=== PATIENT | female | born 1975 | race American Indian/Alaskan Native ===

== ENCOUNTER 2016-09-24 21:59 | Observation (INO) | payer MEDICAID ==
[2016-09-24] MEDS ORDERED: TYLENOL PO PRN (22:31)
[2016-09-24] MEDS ORDERED: ZOFRAN IV PRN (22:31)
[2016-09-24] MEDS ORDERED: AMBIEN PO PRN (22:31)
[2016-09-24] MEDS ORDERED: MYLICON PO PRN (22:31)
[2016-09-24] MEDS ORDERED: COLACE PO PRN (22:31)
[2016-09-24] MEDS ORDERED: DEEP SEA NS PRN (22:31)
[2016-09-24] MEDS ORDERED: BENADRYL PO PRN (22:31)
[2016-09-24] MEDS ORDERED: APRESOLINE PO SCH (22:41)
[2016-09-24] MEDS: APRESOLINE IV PRN (22:57)
[2016-09-24] MEDS ORDERED: LACTATED RINGERS 1,000 ML IV SCH (23:00)
[2016-09-24] MEDS: CELESTONE SOLUSPAN IM SCH (23:14)
[2016-09-24] MEDS ORDERED: NORMODYNE IV ONE ×4 (23:24→23:59)
[2016-09-24 23:50] LABS: Alanine Aminotransferase < 5 units/L (7-56)
[2016-09-24] MEDS: LACTATED RINGERS 1,000 ML IV SCH (23:53)
[2016-09-25 00:01] LABS: Hematocrit 23.8 % (30.3-42.9); Hemoglobin 7.3 gm/dl (10.1-14.3); Mean Corpuscular HGB Conc 31 % (30-34); Mean Corpuscular Hemoglobin 22 pg (28-32); Mean Corpuscular Volume 71 fl (79-97); Platelet Count 270 K/mm3 (140-440); Red Blood Count 3.35 M/mm3 (3.65-5.03); Red Cell Distribution Width 19.3 % (13.2-15.2); White Blood Count 7.6 K/mm3 (4.5-11.0)
[2016-09-25] MEDS ORDERED: APRESOLINE IV ONE (00:31)
[2016-09-25] MEDS: NORMODYNE PO SCH ×5 (01:15→23:08)
[2016-09-25 01:36] LABS: Bacteria,Urine 1+ /HPF (Negative); Bilirubin,Urine NEG (Negative); Blood,Urine NEG (Negative); Ketones,Urine NEG (Negative); Leukocyte Esterase,Urine LG (Negative); Mucus,Urine FEW /HPF; Nitrite,Urine NEG (Negative)
[2016-09-25 07:49] LABS: Lactate Dehydrogenase 173 units/L (91-180)
[2016-09-25] MEDS: LACTATED RINGERS 1,000 ML IV SCH ×2 (08:21→16:05)
--- NOTE | 2016-09-25 09:56 | Ultrasound Report ---
OB sonogram: There is single intrauterine gestation noted with cephalic presentation. JACY 8 cm. Placenta posterior and grade 1. heart rate 150 per minute. No evidence of abruptio. Impression: No evidence of abruptio. BIOPHYSICAL PROFILE: 2 - breathing movements 2 - movements 2 - posture and tone 2 - Qualitative amniotic fluid volume 8 - TOTAL SCORE OF POSSIBLE 8 Heart Rate (bpm) 150
[2016-09-25] MEDS: PRENATAL VITAMIN PO SCH (10:32)
--- NOTE | 2016-09-25 12:23 | History and Physical Report ---
History of Present Illness Date of examination: 09/25/16 Date of admission: 09/24/16 22:32 Chief complaint: Sent by [facility] for blood pressure control and steroid administration History of present illness: Pt is a 40 year old -[place] female CIARRA 11/21/16 at 31w6d with a h/o chronic hypertension on labetalol 300 mg QID and hyralazine 50 mg PO BID, obesity, advanced maternal age and a h/o preeclampsia at 35 wks presents from her home with instructions that she should be admitted for blood pressure monitoring and steroid administration. She was initially seen by her primary Ob/ Bill Of Materials Clerk on 09/22/16 with elevated BP of 154/86 and instructed to proceed to triage which the patient declined to do because she needed to go to work. She was seen at [facility] on 09/23/16, where she is comanaged secondary to her comorbidities, where she had blood pressures 186/102 and 183/101. She was instructed to proceed to triage on this date as well. However, the patient did not present until the evening of 09/24/16 when she was admitted. Shortly after admission, the patient had blood pressures 216/109 and 207/93. She received Labetalol IV 20 mg, then 40 mg, then 80 mg, and hydralazine 10 mg IV before her blood pressure dropped below 160/110. She does report that she is not taking her hydralazine and third medication that the patient cannot recall the name of because it "makes her sick." She does report good movement and denies vaginal bleeding, leakage of fluid or contractions. 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, syphilis (treated ) Family/Genetic History: hypertension, cancer Social history: no significant social history - Obstetrical History Expected Date of Delivery: 11/21/16 Actual Gestation: 31 Week(s) 6 Day(s) : 5 Para: 4 Hx # Term Pregnancies: 3 Number of Pregnancies: 1 Spontaneous Abortions: 0 Induced : 0 Number of Living Children: 4 Medications and Allergies Allergies Allergy/AdvReac Type Severity Reaction Status Date / Time No Known Allergies Allergy Unverified 09/24/16 22:31 Home Medications Medication Instructions Recorded Confirmed Last Taken Type Aspirin [Aspirin BABY CHEW TAB] 81 mg PO QDAY 09/24/16 09/24/16 09/24/16 History Ferrous Sulfate [Feosol] 325 mg PO QDAY 09/24/16 09/24/16 09/24/16 History Labetalol [Normodyne] 300 mg PO QID 09/24/16 09/24/16 09/24/16 19:30 History hydrALAZINE [Apresoline] 50 mg PO BID 09/24/16 09/24/16 09/23/16 History Active Meds: Active Medications Acetaminophen (Tylenol) 650 mg PO Q4H PRN PRN Reason: Pain MILD(1-3)/Fever >100.5/RAM Betamethasone Acet/Betameth SodPhos (Celestone Soluspan) 12 mg IM Q24H [facility] Stop: 09/25/16 22:31 Last Admin: 09/24/16 23:14 Dose: 12 mg Diphenhydramine HCl (Benadryl) 25 mg PO Q6H PRN PRN Reason: Itching Docusate Sodium (Colace) 100 mg PO Q12H PRN PRN Reason: Constipation Ferrous Sulfate (Feosol) 325 mg PO BID [facility] Hydralazine HCl (Apresoline) 5 mg IV Q30MIN PRN PRN Reason: Hypertension Last Admin: 09/24/16 22:57 Dose: 5 mg Lactated Ringer's (Lactated Ringers) 1,000 mls @ 125 mls/hr IV DIRECT [facility] Last Admin: 09/25/16 08:21 Dose: 125 mls/hr Labetalol HCl (Normodyne) 400 mg PO QID [facility] Last Admin: 09/25/16 08:24 Dose: 400 mg Multivitamins/Iron/Calcium ( Vitamin) 1 each PO QDAY [facility] Last Admin: 09/25/16 10:32 Dose: 1 each Ondansetron HCl (Zofran) 4 mg IV Q6H PRN PRN Reason: Nausea And Vomiting Simethicone (Mylicon) 80 mg PO Q6H PRN PRN Reason: Gas pain Sodium Chloride (Deep Sea) 2 spray NS Q4H PRN PRN Reason: Congestion Zolpidem Tartrate (Ambien) 10 mg PO QHS PRN PRN Reason: Sleep Last Admin: 09/25/16 01:15 Dose: 10 mg Review of Systems All systems: negative - Vital Signs Vital signs: Vital Signs Pulse Pulse Ox 107 H 99 09/24/16 22:10 09/24/16 22:10 Temp Pulse Resp BP Pulse Ox 97.6 F 100 H 20 177/91 97 09/25/16 10:00 09/25/16 12:19 09/25/16 10:00 09/25/16 11:57 09/25/16 12:19 - Physical Exam Breasts: Positive: deferred Cardiovascular: Regular rate Lungs: Positive: Clear to auscultation Abdomen: Positive: soft (obese, gravid ) Uterus: Positive: enlarged (gravid ) Extremities: Positive: normal - Obstetrical FHR: auscultation normal Uterine Contraction Monitor Mode: External Uterine Contraction Pattern: Absent Uterine Tone Measurement Phase: Resting Results Result Diagrams: 09/24/16 22:55 09/24/16 22:55 Abnormal lab results 09/24/16 09/24/16 09/25/16 Range/Units 22:55 22:55 00:11 RBC 3.35 L (3.65-5.03) M/mm3 Hgb 7.3 L (10.1-14.3) gm/dl Hct 23.8 L (30.3-42.9) % MCV 71 L (79-97) fl MCH 22 L (28-32) pg RDW 19.3 H (13.2-15.2) % Creatinine 0.6 L (0.7-1.2) mg/dL ALT < 5 L (7-56) units/L Urine WBC (Auto) 28.0 H (0.0-6.0) /HPF All other labs normal. Assessment and Plan A: IUP at 31w6d Chronic hypertension on labetalol and hydralazine (pt non-compliant with prescribed regimen H/o superimposed preeclampsia at 35 wks Anemia pericardial effusion Advanced Maternal Age Obesity Glucose intolerance H/o syphillis Genital Herpes P: Admit to antepartum service Administer two doses of betamethasone (first dose given 09/24/16 23:14 PM) Daily weights Collect 24 hr urine protein APA consult BPP ordered Closely monitor maternal and status
[2016-09-25] MEDS: FEOSOL PO SCH ×2 (12:46→23:08)
--- NOTE | 2016-09-25 13:14 | Consultation ---
History of Present Illness Consult date: 09/25/16 Requesting physician: ALEXEY WONG Reason for consult: gestational hypertension History of present illness: 40YO CIARRA 11/18/16 EGA @ 31w3d admitted due to elevated BPs on OB evaluation. Seen at [facility] and recommended admit due to PIH concerns. HOSPITAL COURSE: She has had labile elevated BPs. She denies any headaches or visual changes. Her resulted labs are unremarkable. Her 24-hr urine is in progress Reassuring bejhavior is demonstrated with a score of 8/8. Her JACY was 8 cm AP Hx - She reports having had a negative NIPT and MSAFP. She reports having had a negative GTT She reports having had baseline PIH labs performed, including a 24-hr urine She was scheduled to have a maternal echo due to her CHTN concerns. She had a EKG She has been on multiple regimens for her BP control this . She is was on Labetalol 300 mg tid, and reports being increased to 400 mg tid and is also taking PO Hydralazine, and LDA Past History Past Medical History: hypertension Past Surgical History: no surgical history Social history: no significant social history - Obstetrical History Expected Date of Delivery: 11/18/16 Actual Gestation: 32 Week(s) 2 Day(s) : 5 Para: 4 Hx # Term Pregnancies: 3 Number of Pregnancies: 1 Spontaneous Abortions: 0 Number of Living Children: 4 Medications and Allergies Allergies Allergy/AdvReac Type Severity Reaction Status Date / Time No Known Allergies Allergy Unverified 09/24/16 22:31 Home Medications Medication Instructions Recorded Confirmed Last Taken Type Aspirin [Aspirin BABY CHEW TAB] 81 mg PO QDAY 09/24/16 09/24/16 09/24/16 History Ferrous Sulfate [Feosol] 325 mg PO QDAY 09/24/16 09/24/16 09/24/16 History Labetalol [Normodyne] 300 mg PO QID 09/24/16 09/24/16 09/24/16 19:30 History hydrALAZINE [Apresoline] 50 mg PO BID 09/24/16 09/24/16 09/23/16 History Active Meds: Active Medications Acetaminophen (Tylenol) 650 mg PO Q4H PRN PRN Reason: Pain MILD(1-3)/Fever >100.5/RAM Betamethasone Acet/Betameth SodPhos (Celestone Soluspan) 12 mg IM Q24H [facility] Stop: 09/25/16 22:31 Last Admin: 09/24/16 23:14 Dose: 12 mg Diphenhydramine HCl (Benadryl) 25 mg PO Q6H PRN PRN Reason: Itching Docusate Sodium (Colace) 100 mg PO Q12H PRN PRN Reason: Constipation Ferrous Sulfate (Feosol) 325 mg PO BID [facility] Last Admin: 09/25/16 12:46 Dose: 325 mg Hydralazine HCl (Apresoline) 5 mg IV Q30MIN PRN PRN Reason: Hypertension Last Admin: 09/24/16 22:57 Dose: 5 mg Lactated Ringer's (Lactated Ringers) 1,000 mls @ 125 mls/hr IV DIRECT [facility] Last Admin: 09/25/16 08:21 Dose: 125 mls/hr Labetalol HCl (Normodyne) 400 mg PO QID [facility] Last Admin: 09/25/16 12:45 Dose: 400 mg Multivitamins/Iron/Calcium ( Vitamin) 1 each PO QDAY [facility] Last Admin: 09/25/16 10:32 Dose: 1 each Ondansetron HCl (Zofran) 4 mg IV Q6H PRN PRN Reason: Nausea And Vomiting Simethicone (Mylicon) 80 mg PO Q6H PRN PRN Reason: Gas pain Sodium Chloride (Deep Sea) 2 spray NS Q4H PRN PRN Reason: Congestion Zolpidem Tartrate (Ambien) 10 mg PO QHS PRN PRN Reason: Sleep Last Admin: 09/25/16 01:15 Dose: 10 mg Review of Systems All systems: negative Eyes: normal appearance Ears, nose, mouth and throat: deferred Cardiovascular: high blood pressure Breasts: deferred - Vital Signs Vital signs: Vital Signs Pulse Pulse Ox 107 H 99 09/24/16 22:10 09/24/16 22:10 Temp Pulse Resp BP Pulse Ox 97.6 F 104 H 20 141/76 99 09/25/16 10:00 09/25/16 13:04 09/25/16 10:00 09/25/16 12:57 09/25/16 13:04 - Physical Exam Breasts: Positive: deferred Cardiovascular: Regular rate Lungs: Positive: Normal air movement Abdomen: Positive: normal appearance Extremities: Positive: normal - Obstetrical FHR: category 1 Results Result Diagrams: 09/24/16 22:55 09/24/16 22:55 Abnormal lab results 09/24/16 09/24/16 09/25/16 Range/Units 22:55 22:55 00:11 RBC 3.35 L (3.65-5.03) M/mm3 Hgb 7.3 L (10.1-14.3) gm/dl Hct 23.8 L (30.3-42.9) % MCV 71 L (79-97) fl MCH 22 L (28-32) pg RDW 19.3 H (13.2-15.2) % Creatinine 0.6 L (0.7-1.2) mg/dL ALT < 5 L (7-56) units/L Urine WBC (Auto) 28.0 H (0.0-6.0) /HPF All other labs normal. Ultrasound: report reviewed Assessment and Plan IMPRESSIONS: 1. IUP @ 31w3d 2. CHTN history on Labetalol and Hydralazine 3. Labile BP elevations 4. PIH labs stable with 24-hr pending 5. Not a candidate for outpatient surveillance due to her significant BP values when labile 6. Unspecified cardiac concern with maternal echo previously scheduled 7. She is at risk for progressing superimposed preeclampsia based on her having a prior history with ler last , as well as her AMA and having CHTN. 8. Reassuring behavior RECOMMENDATIONS: 1. Betamethasone course 2. MgSO4 for neuroprophylaxis 3. Follow-up 24-hr urine results 4. BPP twice weekly to monitor JACY and well-being 5. APA will follow-up periodically, or as requested 6. Serial PIH labs based on subsequent course
[2016-09-25] MEDS ORDERED: CALCIUM GLUCONATE IV ONE (14:41)
[2016-09-25] MEDS ORDERED: MAGNESIUM SULFATE 4GM/100ML 4 GM/100 ML BAG IV ONE (14:41)
[2016-09-25] MEDS: MAGNESIUM SULFATE 40GM/1000ML 40 GM/1,000 ML BAG IV SCH (14:58)
[2016-09-25] MEDS: CELESTONE SOLUSPAN IM SCH (23:43)
[2016-09-26] MEDS: LACTATED RINGERS 1,000 ML IV SCH (05:33)
[2016-09-26] MEDS: APRESOLINE IV PRN (08:51)
[2016-09-26] MEDS: PRENATAL VITAMIN PO SCH (10:15)
[2016-09-26] MEDS: NORMODYNE PO SCH ×3 (10:16→18:06)
--- NOTE | 2016-09-26 11:16 | Progress Note ---
Assessment and Plan A: IUP at 32w0d s/p 2 doses of betamethasone Chronic hypertension on labetalol and hydralazine (pt non-compliant with prescribed regimen): 24 hr urine resulted with 288 mg of protein H/o superimposed preeclampsia at 35 wks Anemia pericardial effusion Advanced Maternal Age Obesity Glucose intolerance H/o syphillis Genital Herpes P: Complete 24 hrs of magnesium sulfate neurprophylaxis (until 3 pm today) Daily weights Closely monitor maternal and status Subjective - Subjective Date of service: 09/26/16 Principal diagnosis: IUP at 32w0d; AMA, Chronic Hypertension Interval history: Pt anxious to go home. Pharmacy called the medicine that makes the patient "sick " is methyl-dopa not hydralazine. No obstetric complaints. Patient reports: movement normal, no new complaints, no loss of fluid, no vaginal bleeding, no contractions Objective - Vital Signs Vital Signs: Vital Signs - 12hr 09/25/16 09/25/16 09/25/16 23:15 23:17 23:19 Temperature 97.7 F Pulse Rate 91 H 90 Pulse Rate [ 91 H From Monitor] Respiratory 20 Rate Blood Pressure 148/83 Blood Pressure 148/83 [Left Arm] Blood Pressure 148/83 [Right Arm] O2 Sat by Pulse 88 Oximetry 09/25/16 09/25/16 09/25/16 23:20 23:25 23:30 Temperature Pulse Rate 87 92 H 90 Pulse Rate [ From Monitor] Respiratory Rate Blood Pressure Blood Pressure [Left Arm] Blood Pressure [Right Arm] O2 Sat by Pulse 97 98 96 Oximetry 09/25/16 09/25/16 09/25/16 23:35 23:38 23:40 Temperature Pulse Rate 91 H 100 H 103 H Pulse Rate [ From Monitor] Respiratory Rate Blood Pressure Blood Pressure [Left Arm] Blood Pressure [Right Arm] O2 Sat by Pulse 99 90 99 Oximetry 09/25/16 09/25/16 09/25/16 23:43 23:45 23:50 Temperature Pulse Rate 94 H 93 H 95 H Pulse Rate [ From Monitor] Respiratory Rate Blood Pressure Blood Pressure [Left Arm] Blood Pressure [Right Arm] O2 Sat by Pulse 93 99 99 Oximetry 09/25/16 09/25/16 09/26/16 23:55 23:56 00:00 Temperature Pulse Rate 95 H 93 H Pulse Rate [ From Monitor] Respiratory Rate Blood Pressure Blood Pressure [Left Arm] Blood Pressure [Right Arm] O2 Sat by Pulse 99 87 99 Oximetry 09/26/16 09/26/16 09/26/16 00:05 00:10 00:15 Temperature Pulse Rate 88 90 85 Pulse Rate [ From Monitor] Respiratory Rate Blood Pressure Blood Pressure [Left Arm] Blood Pressure [Right Arm] O2 Sat by Pulse 96 97 96 Oximetry 09/26/16 09/26/16 09/26/16 00:18 00:20 00:25 Temperature Pulse Rate 85 85 91 H Pulse Rate [ From Monitor] Respiratory Rate Blood Pressure 149/81 Blood Pressure [Left Arm] Blood Pressure [Right Arm] O2 Sat by Pulse 95 98 Oximetry 09/26/16 09/26/16 09/26/16 00:30 00:35 00:38 Temperature Pulse Rate 85 86 97 H Pulse Rate [ From Monitor] Respiratory Rate Blood Pressure Blood Pressure [Left Arm] Blood Pressure [Right Arm] O2 Sat by Pulse 96 97 88 Oximetry 09/26/16 09/26/16 09/26/16 00:40 00:45 00:50 Temperature Pulse Rate 88 86 87 Pulse Rate [ From Monitor] Respiratory Rate Blood Pressure Blood Pressure [Left Arm] Blood Pressure [Right Arm] O2 Sat by Pulse 94 97 98 Oximetry 09/26/16 09/26/16 09/26/16 00:55 01:00 01:05 Temperature Pulse Rate 84 87 88 Pulse Rate [ From Monitor] Respiratory Rate Blood Pressure Blood Pressure [Left Arm] Blood Pressure [Right Arm] O2 Sat by Pulse 98 96 95 Oximetry 09/26/16 09/26/16 09/26/16 01:09 01:10 01:15 Temperature Pulse Rate 91 H 86 91 H Pulse Rate [ From Monitor] Respiratory Rate Blood Pressure Blood Pressure [Left Arm] Blood Pressure [Right Arm] O2 Sat by Pulse 94 97 96 Oximetry 09/26/16 09/26/16 09/26/16 01:17 01:20 01:25 Temperature Pulse Rate 93 H 89 91 H Pulse Rate [ From Monitor] Respiratory Rate Blood Pressure 145/81 Blood Pressure [Left Arm] Blood Pressure [Right Arm] O2 Sat by Pulse 97 95 Oximetry 09/26/16 09/26/16 09/26/16 01:29 01:30 01:35 Temperature Pulse Rate 91 H 89 90 Pulse Rate [ From Monitor] Respiratory Rate Blood Pressure Blood Pressure [Left Arm] Blood Pressure [Right Arm] O2 Sat by Pulse 94 94 94 Oximetry 09/26/16 09/26/16 09/26/16 01:40 01:45 01:50 Temperature Pulse Rate 90 90 93 H Pulse Rate [ From Monitor] Respiratory Rate Blood Pressure Blood Pressure [Left Arm] Blood Pressure [Right Arm] O2 Sat by Pulse 94 94 93 Oximetry 09/26/16 09/26/16 09/26/16 01:55 01:58 02:00 Temperature Pulse Rate 91 H 94 H 91 H Pulse Rate [ From Monitor] Respiratory Rate Blood Pressure Blood Pressure [Left Arm] Blood Pressure [Right Arm] O2 Sat by Pulse 98 94 95 Oximetry 09/26/16 09/26/16 09/26/16 02:04 02:05 02:09 Temperature Pulse Rate 93 H 92 H 92 H Pulse Rate [ From Monitor] Respiratory Rate Blood Pressure Blood Pressure [Left Arm] Blood Pressure [Right Arm] O2 Sat by Pulse 94 96 94 Oximetry 09/26/16 09/26/16 09/26/16 02:10 02:15 02:17 Temperature Pulse Rate 90 91 H 93 H Pulse Rate [ From Monitor] Respiratory Rate Blood Pressure 174/83 Blood Pressure [Left Arm] Blood Pressure [Right Arm] O2 Sat by Pulse 94 92 Oximetry 09/26/16 09/26/16 09/26/16 02:20 02:25 02:30 Temperature Pulse Rate 93 H 92 H 90 Pulse Rate [ From Monitor] Respiratory Rate Blood Pressure 135/69 Blood Pressure [Left Arm] Blood Pressure [Right Arm] O2 Sat by Pulse 97 98 94 Oximetry 09/26/16 09/26/16 09/26/16 02:35 02:40 02:41 Temperature Pulse Rate 92 H 92 H 91 H Pulse Rate [ From Monitor] Respiratory Rate Blood Pressure Blood Pressure [Left Arm] Blood Pressure [Right Arm] O2 Sat by Pulse 94 96 94 Oximetry 09/26/16 09/26/16 09/26/16 02:45 02:50 02:55 Temperature Pulse Rate 87 95 H 91 H Pulse Rate [ From Monitor] Respiratory Rate Blood Pressure Blood Pressure [Left Arm] Blood Pressure [Right Arm] O2 Sat by Pulse 97 93 93 Oximetry 09/26/16 09/26/16 09/26/16 02:56 03:00 03:05 Temperature Pulse Rate 93 H 98 H 96 H Pulse Rate [ From Monitor] Respiratory Rate Blood Pressure Blood Pressure [Left Arm] Blood Pressure [Right Arm] O2 Sat by Pulse 92 93 97 Oximetry 09/26/16 09/26/16 09/26/16 03:10 03:15 03:20 Temperature Pulse Rate 91 H 92 H 95 H Pulse Rate [ From Monitor] Respiratory Rate Blood Pressure Blood Pressure [Left Arm] Blood Pressure [Right Arm] O2 Sat by Pulse 94 94 93 Oximetry 09/26/16 09/26/16 09/26/16 03:25 03:30 03:31 Temperature Pulse Rate 95 H 92 H 94 H Pulse Rate [ From Monitor] Respiratory Rate Blood Pressure Blood Pressure [Left Arm] Blood Pressure [Right Arm] O2 Sat by Pulse 93 94 94 Oximetry 09/26/16 09/26/16 09/26/16 03:34 03:35 03:37 Temperature 97.9 F Pulse Rate 93 H 94 H Pulse Rate [ 99 H From Monitor] Respiratory 18 Rate Blood Pressure 131/70 Blood Pressure 131/70 [Left Arm] Blood Pressure 131/70 [Right Arm] O2 Sat by Pulse 98 97 Oximetry 09/26/16 09/26/16 09/26/16 03:40 03:44 03:45 Temperature Pulse Rate 90 102 H 104 H Pulse Rate [ From Monitor] Respiratory Rate Blood Pressure Blood Pressure [Left Arm] Blood Pressure [Right Arm] O2 Sat by Pulse 98 79 L 78 L Oximetry 09/26/16 09/26/16 09/26/16 03:50 03:55 03:56 Temperature Pulse Rate 95 H 96 H Pulse Rate [ From Monitor] Respiratory Rate Blood Pressure Blood Pressure [Left Arm] Blood Pressure [Right Arm] O2 Sat by Pulse 87 94 94 Oximetry 09/26/16 09/26/16 09/26/16 04:00 04:02 04:05 Temperature Pulse Rate 100 H 95 H 100 H Pulse Rate [ From Monitor] Respiratory Rate Blood Pressure Blood Pressure [Left Arm] Blood Pressure [Right Arm] O2 Sat by Pulse 93 93 94 Oximetry 09/26/16 09/26/16 09/26/16 04:08 04:10 04:15 Temperature Pulse Rate 99 H 99 H 95 H Pulse Rate [ From Monitor] Respiratory Rate Blood Pressure Blood Pressure [Left Arm] Blood Pressure [Right Arm] O2 Sat by Pulse 94 94 96 Oximetry 09/26/16 09/26/16 09/26/16 04:17 04:18 04:20 Temperature Pulse Rate 95 H 93 H 93 H Pulse Rate [ From Monitor] Respiratory Rate Blood Pressure 158/87 Blood Pressure [Left Arm] Blood Pressure [Right Arm] O2 Sat by Pulse 94 97 Oximetry 09/26/16 09/26/16 09/26/16 04:25 04:30 04:35 Temperature Pulse Rate 95 H 96 H 92 H Pulse Rate [ From Monitor] Respiratory Rate Blood Pressure Blood Pressure [Left Arm] Blood Pressure [Right Arm] O2 Sat by Pulse 96 95 97 Oximetry 09/26/16 09/26/16 09/26/16 04:40 04:45 04:46 Temperature Pulse Rate 92 H 90 95 H Pulse Rate [ From Monitor] Respiratory Rate Blood Pressure Blood Pressure [Left Arm] Blood Pressure [Right Arm] O2 Sat by Pulse 97 98 94 Oximetry 09/26/16 09/26/16 09/26/16 04:50 04:51 04:55 Temperature Pulse Rate 95 H 95 H 93 H Pulse Rate [ From Monitor] Respiratory Rate Blood Pressure Blood Pressure [Left Arm] Blood Pressure [Right Arm] O2 Sat by Pulse 93 94 94 Oximetry 09/26/16 09/26/16 09/26/16 04:57 05:00 05:03 Temperature Pulse Rate 93 H 94 H 93 H Pulse Rate [ From Monitor] Respiratory Rate Blood Pressure Blood Pressure [Left Arm] Blood Pressure [Right Arm] O2 Sat by Pulse 94 95 94 Oximetry 09/26/16 09/26/16 09/26/16 05:05 05:09 05:10 Temperature Pulse Rate 93 H 92 H 92 H Pulse Rate [ From Monitor] Respiratory Rate Blood Pressure Blood Pressure [Left Arm] Blood Pressure [Right Arm] O2 Sat by Pulse 96 94 95 Oximetry 09/26/16 09/26/16 09/26/16 05:14 05:15 05:17 Temperature Pulse Rate 90 90 91 H Pulse Rate [ From Monitor] Respiratory Rate Blood Pressure 181/94 Blood Pressure [Left Arm] Blood Pressure [Right Arm] O2 Sat by Pulse 94 93 Oximetry 09/26/16 09/26/16 09/26/16 05:19 05:20 05:25 Temperature Pulse Rate 92 H 90 93 H Pulse Rate [ From Monitor] Respiratory Rate Blood Pressure Blood Pressure [Left Arm] Blood Pressure [Right Arm] O2 Sat by Pulse 94 95 93 Oximetry 09/26/16 09/26/16 09/26/16 05:30 05:35 05:39 Temperature Pulse Rate 95 H 91 H 89 Pulse Rate [ From Monitor] Respiratory Rate Blood Pressure 167/86 Blood Pressure [Left Arm] Blood Pressure [Right Arm] O2 Sat by Pulse 93 94 Oximetry 09/26/16 09/26/16 09/26/16 05:40 05:45 05:47 Temperature Pulse Rate 91 H 92 H 94 H Pulse Rate [ From Monitor] Respiratory Rate Blood Pressure Blood Pressure [Left Arm] Blood Pressure [Right Arm] O2 Sat by Pulse 94 93 91 Oximetry 09/26/16 09/26/16 09/26/16 05:50 05:55 05:57 Temperature Pulse Rate 99 H 93 H 96 H Pulse Rate [ From Monitor] Respiratory Rate Blood Pressure Blood Pressure [Left Arm] Blood Pressure [Right Arm] O2 Sat by Pulse 98 92 92 Oximetry 09/26/16 09/26/16 09/26/16 06:00 06:04 06:05 Temperature Pulse Rate 93 H 93 H 91 H Pulse Rate [ From Monitor] Respiratory Rate Blood Pressure Blood Pressure [Left Arm] Blood Pressure [Right Arm] O2 Sat by Pulse 93 94 94 Oximetry 09/26/16 09/26/16 09/26/16 06:10 06:11 06:15 Temperature Pulse Rate 94 H 95 H 92 H Pulse Rate [ From Monitor] Respiratory Rate Blood Pressure Blood Pressure [Left Arm] Blood Pressure [Right Arm] O2 Sat by Pulse 96 94 93 Oximetry 09/26/16 09/26/16 09/26/16 06:16 06:17 06:21 Temperature Pulse Rate 92 H 90 97 H Pulse Rate [ From Monitor] Respiratory Rate Blood Pressure 163/82 Blood Pressure [Left Arm] Blood Pressure [Right Arm] O2 Sat by Pulse 94 97 Oximetry 09/26/16 09/26/16 09/26/16 06:22 06:26 06:28 Temperature Pulse Rate 95 H 96 H 95 H Pulse Rate [ From Monitor] Respiratory Rate Blood Pressure Blood Pressure [Left Arm] Blood Pressure [Right Arm] O2 Sat by Pulse 94 95 94 Oximetry 09/26/16 09/26/16 09/26/16 06:31 06:36 06:38 Temperature Pulse Rate 92 H 92 H 94 H Pulse Rate [ From Monitor] Respiratory Rate Blood Pressure Blood Pressure [Left Arm] Blood Pressure [Right Arm] O2 Sat by Pulse 93 89 92 Oximetry 09/26/16 09/26/16 09/26/16 06:41 06:45 06:46 Temperature Pulse Rate 96 H 96 H 96 H Pulse Rate [ From Monitor] Respiratory Rate Blood Pressure 173/96 Blood Pressure [Left Arm] Blood Pressure [Right Arm] O2 Sat by Pulse 97 96 Oximetry 09/26/16 09/26/16 09/26/16 06:47 06:51 06:53 Temperature Pulse Rate 103 H 93 H 92 H Pulse Rate [ From Monitor] Respiratory Rate Blood Pressure Blood Pressure [Left Arm] Blood Pressure [Right Arm] O2 Sat by Pulse 90 95 94 Oximetry 09/26/16 09/26/16 09/26/16 06:56 06:59 07:01 Temperature Pulse Rate 92 H 89 88 Pulse Rate [ From Monitor] Respiratory Rate Blood Pressure Blood Pressure [Left Arm] Blood Pressure [Right Arm] O2 Sat by Pulse 92 93 94 Oximetry 09/26/16 09/26/16 09/26/16 07:06 07:08 07:11 Temperature Pulse Rate 92 H 90 89 Pulse Rate [ From Monitor] Respiratory Rate Blood Pressure 158/84 Blood Pressure [Left Arm] Blood Pressure [Right Arm] O2 Sat by Pulse 95 97 Oximetry 09/26/16 09/26/16 09/26/16 07:13 07:15 07:16 Temperature 97.7 F Pulse Rate 92 H 94 H Pulse Rate [ 93 H From Monitor] Respiratory 24 Rate Blood Pressure Blood Pressure 160/86 [Left Arm] Blood Pressure 160/86 [Right Arm] O2 Sat by Pulse 94 93 94 Oximetry 09/26/16 09/26/16 09/26/16 07:17 07:21 07:26 Temperature Pulse Rate 90 92 H 92 H Pulse Rate [ From Monitor] Respiratory Rate Blood Pressure 160/86 Blood Pressure [Left Arm] Blood Pressure [Right Arm] O2 Sat by Pulse 96 95 Oximetry 09/26/16 09/26/16 09/26/16 07:31 07:36 07:41 Temperature Pulse Rate 92 H 93 H 92 H Pulse Rate [ From Monitor] Respiratory Rate Blood Pressure Blood Pressure [Left Arm] Blood Pressure [Right Arm] O2 Sat by Pulse 96 97 95 Oximetry 09/26/16 09/26/16 09/26/16 07:43 07:46 07:51 Temperature Pulse Rate 92 H 89 86 Pulse Rate [ From Monitor] Respiratory Rate Blood Pressure Blood Pressure [Left Arm] Blood Pressure [Right Arm] O2 Sat by Pulse 91 92 97 Oximetry 09/26/16 09/26/16 09/26/16 07:56 08:01 08:06 Temperature Pulse Rate 86 89 89 Pulse Rate [ From Monitor] Respiratory Rate Blood Pressure Blood Pressure [Left Arm] Blood Pressure [Right Arm] O2 Sat by Pulse 93 99 94 Oximetry 09/26/16 09/26/16 09/26/16 08:11 08:13 08:16 Temperature Pulse Rate 97 H 98 H 99 H Pulse Rate [ From Monitor] Respiratory Rate Blood Pressure Blood Pressure [Left Arm] Blood Pressure [Right Arm] O2 Sat by Pulse 97 81 L 98 Oximetry 09/26/16 09/26/16 09/26/16 08:19 08:21 08:26 Temperature Pulse Rate 96 H 101 H 103 H Pulse Rate [ From Monitor] Respiratory Rate Blood Pressure 167/79 Blood Pressure [Left Arm] Blood Pressure [Right Arm] O2 Sat by Pulse 97 95 Oximetry 09/26/16 09/26/16 09/26/16 08:31 08:36 08:41 Temperature Pulse Rate 97 H 90 95 H Pulse Rate [ From Monitor] Respiratory Rate Blood Pressure Blood Pressure [Left Arm] Blood Pressure [Right Arm] O2 Sat by Pulse 95 97 98 Oximetry 09/26/16 09/26/16 09/26/16 08:46 08:51 08:56 Temperature Pulse Rate 96 H 100 H 97 H Pulse Rate [ From Monitor] Respiratory Rate Blood Pressure 167/79 Blood Pressure [Left Arm] Blood Pressure [Right Arm] O2 Sat by Pulse 97 96 99 Oximetry 09/26/16 09/26/16 09/26/16 09:01 09:06 09:11 Temperature Pulse Rate 97 H 95 H 97 H Pulse Rate [ From Monitor] Respiratory Rate Blood Pressure Blood Pressure [Left Arm] Blood Pressure [Right Arm] O2 Sat by Pulse 97 98 97 Oximetry 09/26/16 09/26/16 09/26/16 09:16 09:17 09:21 Temperature Pulse Rate 94 H 95 H 96 H Pulse Rate [ From Monitor] Respiratory Rate Blood Pressure 148/88 Blood Pressure [Left Arm] Blood Pressure [Right Arm] O2 Sat by Pulse 97 97 Oximetry 09/26/16 09/26/16 09/26/16 09:26 09:31 09:36 Temperature Pulse Rate 99 H 96 H 96 H Pulse Rate [ From Monitor] Respiratory Rate Blood Pressure Blood Pressure [Left Arm] Blood Pressure [Right Arm] O2 Sat by Pulse 97 98 97 Oximetry 09/26/16 09/26/16 09/26/16 09:41 09:46 09:51 Temperature Pulse Rate 95 H 99 H 98 H Pulse Rate [ From Monitor] Respiratory Rate Blood Pressure Blood Pressure [Left Arm] Blood Pressure [Right Arm] O2 Sat by Pulse 97 97 99 Oximetry 09/26/16 09/26/16 09/26/16 09:56 10:01 10:06 Temperature Pulse Rate 104 H 101 H 97 H Pulse Rate [ From Monitor] Respiratory Rate Blood Pressure Blood Pressure [Left Arm] Blood Pressure [Right Arm] O2 Sat by Pulse 97 97 99 Oximetry 09/26/16 09/26/16 09/26/16 10:11 10:16 10:17 Temperature Pulse Rate 95 H 92 H 102 H Pulse Rate [ From Monitor] Respiratory Rate Blood Pressure 148/88 146/74 Blood Pressure [Left Arm] Blood Pressure [Right Arm] O2 Sat by Pulse 99 98 Oximetry 09/26/16 09/26/16 09/26/16 10:21 10:26 10:30 Temperature Pulse Rate 94 H 89 96 H Pulse Rate [ From Monitor] Respiratory Rate Blood Pressure Blood Pressure [Left Arm] Blood Pressure [Right Arm] O2 Sat by Pulse 95 96 91 Oximetry 09/26/16 09/26/16 09/26/16 10:31 10:36 10:41 Temperature Pulse Rate 91 H 87 88 Pulse Rate [ From Monitor] Respiratory Rate Blood Pressure Blood Pressure [Left Arm] Blood Pressure [Right Arm] O2 Sat by Pulse 94 96 95 Oximetry 09/26/16 09/26/16 09/26/16 10:46 10:51 10:56 Temperature Pulse Rate 94 H 94 H 96 H Pulse Rate [ From Monitor] Respiratory Rate Blood Pressure Blood Pressure [Left Arm] Blood Pressure [Right Arm] O2 Sat by Pulse 99 97 95 Oximetry 09/26/16 09/26/16 09/26/16 10:58 11:05 11:10 Temperature Pulse Rate 86 101 H 96 H Pulse Rate [ From Monitor] Respiratory Rate Blood Pressure Blood Pressure [Left Arm] Blood Pressure [Right Arm] O2 Sat by Pulse 66 L 96 94 Oximetry - Exam Breasts: deferred Cardiovascular: Regular rate Lungs: Clear to auscultation Abdomen: Present: soft (obese, gravid ). Absent: tenderness Uterus: Present: normal (gravid ) FHR: auscultation normal Uterine Contraction Monitor Mode: External Uterine Contraction Pattern: Absent Uterine Tone Measurement Phase: Resting Extremities: normal - Labs Labs: Abnormal Labs 09/24/16 09/24/16 09/25/16 22:55 22:55 00:10 RBC 3.35 L Hgb 7.3 L Hct 23.8 L MCV 71 L MCH 22 L RDW 19.3 H Creatinine 0.6 L Magnesium ALT < 5 L Urine WBC (Auto) Ur Total Protein 24 Hr 288.00 H 09/25/16 09/25/16 09/26/16 00:11 21:24 04:35 RBC Hgb Hct MCV MCH RDW Creatinine Magnesium 4.30 H 4.90 H ALT Urine WBC (Auto) 28.0 H Ur Total Protein 24 Hr 09/26/16 08:58 RBC Hgb Hct MCV MCH RDW Creatinine Magnesium 5.30 H ALT Urine WBC (Auto) Ur Total Protein 24 Hr Laboratory Results - last 24 hr 09/25/16 09/25/16 09/25/16 00:10 13:55 21:24 Hemoglobin A1c 5.8 Magnesium 4.30 H Urine Total Volume 4800 Ur Total Protein 24 Hr 288.00 H Urine Total Protein 6 09/26/16 09/26/16 04:35 08:58 Hemoglobin A1c Magnesium 4.90 H 5.30 H Urine Total Volume Ur Total Protein 24 Hr Urine Total Protein
[2016-09-26] MEDS: MAGNESIUM SULFATE 40GM/1000ML 40 GM/1,000 ML BAG IV SCH (11:42)
[2016-09-26] MEDS ORDERED: APRESOLINE PO SCH (12:00)
--- NOTE | 2016-09-26 15:22 | Event Note ---
Date: 09/26/16 On-call physician communicated with [facility] on-call Dr El with 24 hr urine results and BP trend 130-150/70-90s. If repeat rule out HELLP labs WNL, pt is able to go home with twice weekly follow up in the [facility] office as well as weekly OB visits. I will draw rule out HELLP labs now.
[2016-09-26 15:40] LABS: Hematocrit 22.2 % (30.3-42.9); Hemoglobin 6.7 gm/dl (10.1-14.3); Mean Corpuscular HGB Conc 30 % (30-34); Mean Corpuscular Hemoglobin 22 pg (28-32); Mean Corpuscular Volume 72 fl (79-97); Platelet Count 273 K/mm3 (140-440); Red Blood Count 3.09 M/mm3 (3.65-5.03); White Blood Count 12.1 K/mm3 (4.5-11.0)
[2016-09-26 16:02] LABS: Alanine Aminotransferase < 5 units/L (7-56)
[2016-09-26 16:53] LABS: Lactate Dehydrogenase 172 units/L (91-180); Uric Acid 6.6 mg/dL (3.5-7.6)
--- NOTE | 2016-09-26 17:22 | Discharge Summary ---
Providers - Providers Date of Admission: 09/24/16 22:32 Date of discharge: 09/26/16 Attending physician: ALEXEY WONG 09/25/16 07:43 Consult to Physician [CONS] Routine Consulting Provider: PAMELA EL Reason For Exam: IUP at 31 wks, chronic hypertension Primary care physician: ALEXEY WONG Hospitalization Reason for admission: other (elevated blood pressure ) Hospital course: This patient was admitted secondary to elevated blood pressure readings at the [facility] office for 24 hr urine collection, serial blood pressures and adjustment of her antihypertensive regimen. While hospitalized, she did receive two doses of betamethasone for lung maturity. She also received magnesium sulfate for 24 hrs for seizure prophylaxis and neuroprotection. She was discharged on Labetalol 400 mg PO QID and Hydralazine 50 mg PO BID. She will follow up with [facility] tomorrow (09/27/16) and at her scheduled OB visit Tue or of next week. The patient will be on bedrest at home and will weigh herself daily and keep a log per [facility] recommendations. Condition at discharge: Stable Disposition: [id number] TO HOME OR SELFCARE - Discharge Diagnoses (1) Advanced maternal age (AMA), 40 years or greater Status: Acute (2) Chronic hypertension affecting Status: Acute (3) Obesity Status: Acute Qualifiers: Obesity type: unspecified obesity type Obesity severity: unspecified obesity severity Qualified Code(s): E66.9 - Obesity, unspecified Plan - Discharge Medications Prescriptions: Hydralazine HCl [Apresoline TAB] 50 mg PO BID #60 tablet Labetalol [Normodyne TAB] 200 mg PO Q6H #240 tablet - Provider Discharge Summary Activity: routine, other (bedrest with bathroom privelges) Diet: routine Additional instructions: [] Smoking cessation referral if applicable(refer to patient education folder for contact #) [] Refer to [facility] Booklet Call your doctor immediately for: * Fever > 100.5 * Heavy vaginal bleeding ( >1 pad per hour) * Severe persistent headache * Shortness of breath * Reddened, hot, painful area to leg or breast * Drainage or odor from incision. * Keep incision clean and dry at all times and follow doctor's instructions regarding bathing/showering Weigh yourself each day and record the numbers in a log that you bring to your doctors visits. Follow up at [facility] (the specialist ) doctors on Tuesday per Dr El. You will need to call for that appt. - Follow up plan Follow up: NELL ARMENDARIZ MD [Staff Physician] - 09/30/16 (Follow up with [facility] on Tuesday and at scheduled OB appt on Tue or ) CARLOS,PAMELA Chin MD [Staff Physician] - 09/27/16
[2016-09-26 17:26] VITALS: BP 134/69
== END 2016-09-26 18:00 | disposition home or self-care (01) ==
LOC: TRG 21:59 → LD 22:32
PROVIDERS: ADMIT Obstetrics & Gynecology; ATTEND Obstetrics & Gynecology
DX: O10.913 Unspecified pre-existing hypertension complicating pregnancy, third trimester (principal); O99.213 Obesity complicating pregnancy, third trimester; O09.523 Supervision of elderly multigravida, third trimester; Z3A.31 31 weeks gestation of pregnancy
CPT/HCPCS: 36415; 76815; 76819; 81001; 82565; 83036; 83615; 83735; 84156; 84450; 84460; 84550; 85027; 86850; 86900; 86901; 96361; 96365; 96366; 96367; 96368; 96372; 96375; 96376; G0378; J0360; J0702; J2405; J3475; J7120

== ENCOUNTER 2016-10-01 06:15 | Inpatient (IN) | payer MEDICAID ==
[2016-10-01] MEDS ORDERED: ALUM-MAG HYDROX-SIMETH 200-200-20MG/5ML PO PRN (10:00)
[2016-10-01] MEDS ORDERED: MYLICON PO PRN (10:00)
[2016-10-01] MEDS ORDERED: SENOKOT S PO PRN (10:00)
[2016-10-01] MEDS ORDERED: NORMODYNE PO SCH (10:00)
[2016-10-01] MEDS ORDERED: COLACE PO PRN (10:00)
[2016-10-01] MEDS ORDERED: ZOFRAN IV PRN (10:00)
[2016-10-01] MEDS: PRENATAL VITAMIN PO SCH (10:37)
[2016-10-01] MEDS: APRESOLINE PO SCH ×2 (10:54→21:58)
[2016-10-01] MEDS: LACTATED RINGERS 1,000 ML IV SCH ×2 (10:58→17:22)
[2016-10-01 11:28] LABS: Bacteria,Urine 2+ /HPF (Negative); Bilirubin,Urine NEG (Negative); Blood,Urine MOD (Negative); Ketones,Urine NEG (Negative); Leukocyte Esterase,Urine LG (Negative); Mucus,Urine FEW /HPF; Nitrite,Urine NEG (Negative); Protein,Urine <15 mg/dL mg/dL (Negative); Urobilinogen,Urine < 2.0 mg/dL (<2.0)
[2016-10-01 11:52] LABS: Basophils % (Auto) 0.3 % (0.0-1.8); Eosinophils % (Auto) 1.3 % (0.0-4.3); Hematocrit 25.1 % (30.3-42.9); Hemoglobin 7.5 gm/dl (10.1-14.3); Mean Corpuscular HGB Conc 30 % (30-34); Mean Corpuscular Hemoglobin 22 pg (28-32); Mean Corpuscular Volume 73 fl (79-97); Platelet Count 293 K/mm3 (140-440); Red Blood Count 3.46 M/mm3 (3.65-5.03); White Blood Count 7.2 K/mm3 (4.5-11.0)
[2016-10-01 12:25] LABS: Alanine Aminotransferase 6 units/L (7-56); Albumin 3.2 g/dL (3.9-5); Albumin/Globulin Ratio 0.9 %; Alkaline Phosphatase 85 units/L (35-129); Anion Gap 19 mmol/L; BUN/Creatinine Ratio 8.57; Blood Urea Nitrogen 6 mg/dL (7-17); Calcium 8.9 mg/dL (8.4-10.2); Carbon Dioxide 22 mmol/L (22-30); Chloride 104.1 mmol/L (98-107); Glucose 94 mg/dL (65-100); Lactate Dehydrogenase 185 units/L (91-180); Potassium 3.6 mmol/L (3.6-5.0); Sodium 141 mmol/L (137-145); Total Protein 6.8 g/dL (6.3-8.2); Uric Acid 8.9 mg/dL (3.5-7.6)
--- NOTE | 2016-10-01 12:48 | History and Physical Report ---
History of Present Illness Date of examination: 10/01/16 Date of admission: 10/01/16 09:31 Chief complaint: direct admit from [facility] for elevated BP History of present illness: This is a 40 yo at 32+ weeks was seen in clinic and [facility] and noted to have elevated BP 180/100s. She has a hx of chronic HTN on labetolol and hydralazine and baby asa during this . She was admitted last week for evaluation and treatment of HTN and started on mag. She was discharged and still remained to have elevated BP. OB problem list 1. AMA 2. chronic HTN 3. 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 anemia- on iron tabs 6. Glucose intolerance 7. 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 denies: smoking, alcohol abuse - Obstetrical History Expected Date of Delivery: 11/21/16 Actual Gestation: 32 Week(s) 5 Day(s) : 5 Para: 3 Hx # Term Pregnancies: 1 Number of Pregnancies: 1 Spontaneous Abortions: 0 Induced : 0 Number of Living Children: 4 Medications and Allergies Allergies Allergy/AdvReac Type Severity Reaction Status Date / Time No Known Allergies Allergy Unverified 09/24/16 22:31 Home Medications Medication Instructions Recorded Confirmed Last Taken Type Aspirin [Aspirin BABY CHEW TAB] 81 mg PO QDAY 09/24/16 09/24/16 09/24/16 History Ferrous Sulfate [Feosol] 325 mg PO QDAY 09/24/16 09/24/16 09/24/16 History Labetalol [Normodyne] 300 mg PO QID 09/24/16 09/24/16 09/24/16 19:30 History hydrALAZINE [Apresoline] 50 mg PO BID 09/24/16 09/24/16 09/23/16 History Hydralazine HCl [Apresoline TAB] 50 mg PO BID #60 tablet 09/26/16 Unknown Rx Labetalol [Normodyne TAB] 200 mg PO Q6H #240 tablet 09/26/16 Unknown Rx Active Meds: Active Medications Acetaminophen (Tylenol) 650 mg PO Q4H PRN PRN Reason: Pain MILD(1-3)/Fever >100.5/RAM Al Hydrox/Mg Hydrox/Simethicone (Alum-Mag Hydrox-Simeth 666-396-72oz/5ml) 30 ml PO Q6H PRN PRN Reason: Indigestion Docusate Sodium (Colace) 100 mg PO Q12H PRN PRN Reason: Constipation Hydralazine HCl (Apresoline) 5 mg IV Q30MIN PRN PRN Reason: Hypertension Hydralazine HCl (Apresoline) 50 mg PO BID [facility] Last Admin: 10/01/16 10:54 Dose: 50 mg Lactated Ringer's (Lactated Ringers) 1,000 mls @ 125 mls/hr IV DIRECT [facility] Last Admin: 10/01/16 10:58 Dose: 125 mls/hr Labetalol HCl (Normodyne) 400 mg PO QID [facility] Last Admin: 10/01/16 10:38 Dose: 400 mg Magnesium Hydroxide (Milk Of Magnesia) 30 ml PO QHS PRN PRN Reason: Laxative Effect Multivitamins/Iron/Calcium ( Vitamin) 1 each PO QDAY [facility] Last Admin: 10/01/16 10:37 Dose: 1 each Ondansetron HCl (Zofran) 4 mg IV Q6H PRN PRN Reason: Nausea And Vomiting Senna/Docusate Sodium (Senokot S) 2 tab PO Q12H PRN PRN Reason: Laxative Effect Simethicone (Mylicon) 80 mg PO Q6H PRN PRN Reason: Gas pain Zolpidem Tartrate (Ambien) 10 mg PO ONCE PRN PRN Reason: Sleep Review of Systems All systems: negative - Vital Signs Vital signs: Vital Signs Pulse Pulse Ox 78 88 10/01/16 07:19 10/01/16 07:19 Temp Pulse Resp BP Pulse Ox 98.1 F 83 18 168/81 98 10/01/16 07:24 10/01/16 10:54 10/01/16 07:24 10/01/16 10:54 10/01/16 07:45 - Physical Exam Breasts: Positive: deferred Cardiovascular: Regular rate, Normal S1 Lungs: Positive: Clear to auscultation, Normal air movement Abdomen: Positive: normal appearance, soft, normal bowel sounds. Negative: distention, tenderness Genitourinary (Female): Positive: normal external genitalia, normal perenium Vulva: both: normal Vagina: Positive: normal moisture Uterus: Positive: normal size, normal contour Adnexa: both: normal Extremities: Positive: normal Deep Tendon Reflex Grade: Normal +2 - Obstetrical FHR: category 1 Uterine Contraction Monitor Mode: External Results Result Diagrams: 10/01/16 10:58 10/01/16 10:58 Abnormal lab results 10/01/16 10/01/16 10/01/16 Range/Units 10:58 10:58 11:11 RBC 3.46 L (3.65-5.03) M/mm3 Hgb 7.5 L (10.1-14.3) gm/dl Hct 25.1 L (30.3-42.9) % MCV 73 L (79-97) fl MCH 22 L (28-32) pg RDW 20.0 H (13.2-15.2) % Seg Neutrophils % 72.0 H (40.0-70.0) % BUN 6 L (7-17) mg/dL Uric Acid 8.9 H (3.5-7.6) mg/dL ALT 6 L (7-56) units/L Lactate Dehydrogenase 185 H (91-180) units/L Albumin 3.2 L (3.9-5) g/dL Urine WBC (Auto) 13.0 H (0.0-6.0) /HPF All other labs normal. Assessment and Plan A/P IUP 32+5 weeks Chronic HTN HSV2+ AMA Obesity Syphillis ( recently treated) Severe anemia pericardial effusion Cardiology consult placed BPP, US, labs for pree, twice weekly No lesions noted Iron BID HTN meds ( labetolol 400 mg qid , hydralazine 50mg BID) emergency meds >160/110 hydralazine IV vs labetolol IV strict I's and O's s/p BMZ 09/24 and 09/25 24 hr urine collection ( started today, last week 195) Delivery around 34 weeks maternal or compromise deliver earlier than 34 weeks
[2016-10-01] MEDS: NORMODYNE PO SCH ×2 (16:15→22:20)
[2016-10-01] MEDS: APRESOLINE IV PRN ×3 (16:20→21:54)
[2016-10-01] MEDS: ROBITUSSIN PO PRN (17:31)
[2016-10-01] MEDS: TYLENOL PO PRN (18:27)
[2016-10-01] MEDS ORDERED: MILK OF MAGNESIA PO PRN (22:00)
[2016-10-01] MEDS: AMBIEN PO PRN (23:30)
[2016-10-02] MEDS: LACTATED RINGERS 1,000 ML IV SCH ×3 (02:56→20:07)
[2016-10-02] MEDS: APRESOLINE IV PRN ×7 (04:22→21:31)
[2016-10-02] MEDS: NORMODYNE PO SCH ×4 (04:28→22:16)
[2016-10-02] MEDS: APRESOLINE PO SCH ×3 (10:30→23:09)
[2016-10-02] MEDS: PRENATAL VITAMIN PO SCH (10:31)
[2016-10-02] MEDS: TYLENOL PO PRN (11:24)
--- NOTE | 2016-10-02 13:08 | Consultation ---
History of Present Illness History of present illness: This is a 40-year-old female 33 weeks seen for hypertension evaluation. During her previous pregnancies she had hypertension but no hypertension otherwise. Patient has no chest pain difficulty breathing or palpitations. She is on labetalol and hydralazine currently. Patient has no history of prior myocardial infarction congestive heart failure rheumatic fever or cardiac murmur. Past History Past Medical History: hypertension Past Surgical History: No surgical history Social history: . denies: smoking, alcohol abuse Family history: hypertension Medications and Allergies Allergies Allergy/AdvReac Type Severity Reaction Status Date / Time lactose Allergy Intermediate Diarrhea Verified 10/02/16 09:03 Home Medications Medication Instructions Recorded Confirmed Last Taken Type Aspirin [Aspirin BABY CHEW TAB] 81 mg PO QDAY 09/24/16 09/24/16 09/24/16 History Ferrous Sulfate [Feosol] 325 mg PO QDAY 09/24/16 09/24/16 09/24/16 History Labetalol [Normodyne] 300 mg PO QID 09/24/16 09/24/16 09/24/16 19:30 History hydrALAZINE [Apresoline] 50 mg PO BID 09/24/16 09/24/16 09/23/16 History Hydralazine HCl [Apresoline TAB] 50 mg PO BID #60 tablet 09/26/16 Unknown Rx Labetalol [Normodyne TAB] 200 mg PO Q6H #240 tablet 09/26/16 Unknown Rx Active Meds: Active Medications Acetaminophen (Tylenol) 650 mg PO Q4H PRN PRN Reason: Pain MILD(1-3)/Fever >100.5/RAM Last Admin: 10/02/16 11:24 Dose: 650 mg Al Hydrox/Mg Hydrox/Simethicone (Alum-Mag Hydrox-Simeth 186-832-01ic/5ml) 30 ml PO Q6H PRN PRN Reason: Indigestion Docusate Sodium (Colace) 100 mg PO Q12H PRN PRN Reason: Constipation Guaifenesin (Robitussin) 200 mg PO Q4H PRN PRN Reason: Cough Last Admin: 10/01/16 17:31 Dose: 200 mg Hydralazine HCl (Apresoline) 50 mg PO BID [facility] Last Admin: 10/02/16 10:30 Dose: 50 mg Hydralazine HCl (Apresoline) 10 mg IV Q30MIN PRN PRN Reason: Blood Pressure Last Admin: 10/02/16 11:25 Dose: 10 mg Lactated Ringer's (Lactated Ringers) 1,000 mls @ 125 mls/hr IV DIRECT [facility] Last Admin: 10/02/16 11:23 Dose: 125 mls/hr Labetalol HCl (Normodyne) 400 mg PO Q6H [facility] Last Admin: 10/02/16 11:39 Dose: 400 mg Magnesium Hydroxide (Milk Of Magnesia) 30 ml PO QHS PRN PRN Reason: Laxative Effect Multivitamins/Iron/Calcium ( Vitamin) 1 each PO QDAY [facility] Last Admin: 10/02/16 10:31 Dose: 1 each Ondansetron HCl (Zofran) 4 mg IV Q6H PRN PRN Reason: Nausea And Vomiting Senna/Docusate Sodium (Senokot S) 2 tab PO Q12H PRN PRN Reason: Laxative Effect Simethicone (Mylicon) 80 mg PO Q6H PRN PRN Reason: Gas pain Zolpidem Tartrate (Ambien) 10 mg PO ONCE PRN PRN Reason: Sleep Last Admin: 10/01/16 23:30 Dose: 10 mg Review of Systems Ears, nose, mouth and throat: other (no symptoms) Cardiovascular: other (no symptoms) Respiratory: other (no symptoms) Gastrointestinal: other (no symptoms) Genitourinary Female: other (patient is 32 weeks ) Integumentary: other (no symptoms) Endocrine: other (no history of diabetes) Hematologic/Lymphatic: other (no symptoms) Physical Examination Vital Signs Pulse Pulse Ox 78 88 10/01/16 07:19 10/01/16 07:19 General appearance: no acute distress HEENT: Positive: PERRL Neck: Positive: neck supple Cardiac: Positive: Reg Rate and Rhythm Lungs: Positive: Normal Exam Neuro: Positive: Grossly Intact Abdomen: Positive: Other ( uterus) Skin: Positive: Clear Extremities: Present: normal Results 10/01/16 10:58 10/01/16 10:58 Assessment and Plan 40-year-old female is seen for uncontrolled hypertension. #1 uncontrolled hypertension This 40-year-old female is admitted with uncontrolled hypertension. Currently she is on labetalol and hydralazine. In spite of that the blood pressure is not well controlled. Problem appears to be in more likely preeclampsia. Discussed with Dr. Foster. She is considering the induction of labor. Patient had blood pressure problems only during . Cardiac examination stable. Will obtain a echocardiogram. Will increase the hydralazine to 50 mg 4 times a day and monitor her closely along with you. Thank you for allowing me to participate in the care of this pleasant lady. - Patient Problems (1) Advanced maternal age (AMA), 40 years or greater Current Visit: No Status: Acute
--- NOTE | 2016-10-02 14:43 | Progress Note ---
Assessment and Plan HD 2 with chronic hypertension. 24 hour urine only with 390 grams. Pressure under better control now. Will increase hydralazine to q6 hours per cardiology. Per MFM delivery at 34 weeks, however if blood pressure remains this elevated will consider induction more urgently. Subjective - Subjective Date of service: 10/02/16 Interval history: Patient concerned about blood pressure and re Patient reports: movement normal Objective - Vital Signs Vital Signs: Vital Signs - 12hr 10/02/16 10/02/16 10/02/16 03:02 04:03 04:13 Temperature 98.4 F Pulse Rate 97 H 101 H Pulse Rate [ 101 H Left From Monitor] Respiratory 18 Rate Blood Pressure 166/72 174/81 Blood Pressure 174/81 [Right Arm] 10/02/16 10/02/16 10/02/16 04:22 04:23 04:25 Temperature Pulse Rate 101 H 100 H 100 H Pulse Rate [ Left From Monitor] Respiratory Rate Blood Pressure 174/81 203/105 185/92 Blood Pressure [Right Arm] 10/02/16 10/02/16 10/02/16 04:28 04:34 04:40 Temperature Pulse Rate 100 H 103 H 101 H Pulse Rate [ Left From Monitor] Respiratory Rate Blood Pressure 185/92 177/97 173/80 Blood Pressure [Right Arm] 10/02/16 10/02/16 10/02/16 04:45 04:51 04:55 Temperature Pulse Rate 100 H 102 H 102 H Pulse Rate [ Left From Monitor] Respiratory Rate Blood Pressure 169/89 170/81 165/80 Blood Pressure [Right Arm] 10/02/16 10/02/16 10/02/16 05:00 05:06 05:12 Temperature Pulse Rate 106 H 103 H 103 H Pulse Rate [ Left From Monitor] Respiratory Rate Blood Pressure 153/79 182/95 182/95 Blood Pressure [Right Arm] 10/02/16 10/02/16 10/02/16 05:15 05:27 05:30 Temperature Pulse Rate 101 H 102 H 100 H Pulse Rate [ Left From Monitor] Respiratory Rate Blood Pressure 183/86 176/91 163/86 Blood Pressure [Right Arm] 10/02/16 10/02/16 10/02/16 05:35 05:40 05:46 Temperature Pulse Rate 100 H 99 H 100 H Pulse Rate [ Left From Monitor] Respiratory Rate Blood Pressure 173/91 172/93 162/91 Blood Pressure [Right Arm] 10/02/16 10/02/16 10/02/16 05:48 05:50 05:56 Temperature Pulse Rate 100 H 96 H 100 H Pulse Rate [ Left From Monitor] Respiratory Rate Blood Pressure 162/91 161/88 157/82 Blood Pressure [Right Arm] 10/02/16 10/02/16 10/02/16 06:31 06:41 07:00 Temperature Pulse Rate 100 H 100 H 100 H Pulse Rate [ Left From Monitor] Respiratory Rate Blood Pressure 174/87 159/75 174/82 Blood Pressure [Right Arm] 10/02/16 10/02/16 10/02/16 07:30 07:55 08:00 Temperature 97.0 F L Pulse Rate 102 H 100 H 100 H Pulse Rate [ 96 H Left From Monitor] Respiratory 20 Rate Blood Pressure 180/97 182/93 159/76 Blood Pressure 166/83 [Right Arm] 10/02/16 10/02/16 10/02/16 08:04 08:07 08:10 Temperature 97.5 F L Pulse Rate 96 H 96 H Pulse Rate [ 96 H Left From Monitor] Respiratory 20 Rate Blood Pressure 166/83 166/83 Blood Pressure 168/70 [Right Arm] 10/02/16 10/02/16 10/02/16 08:11 08:30 09:34 Temperature 97.5 F L Pulse Rate 98 H 100 H 98 H Pulse Rate [ 100 H Left From Monitor] Respiratory 20 Rate Blood Pressure 167/89 153/76 159/88 Blood Pressure 153/76 [Right Arm] 10/02/16 10/02/16 10/02/16 10:23 10:30 11:02 Temperature 97.5 F L Pulse Rate 100 H 100 H 100 H Pulse Rate [ 100 H Left From Monitor] Respiratory 20 Rate Blood Pressure 173/94 173/94 182/98 Blood Pressure 173/94 [Right Arm] 10/02/16 10/02/16 10/02/16 11:13 11:25 11:27 Temperature Pulse Rate 97 H 97 H 98 H Pulse Rate [ Left From Monitor] Respiratory Rate Blood Pressure 186/109 186/109 171/84 Blood Pressure [Right Arm] 10/02/16 10/02/16 10/02/16 11:30 11:32 11:39 Temperature 97.8 F Pulse Rate 98 H 98 H Pulse Rate [ 94 H Left From Monitor] Respiratory 20 Rate Blood Pressure 167/87 167/87 Blood Pressure 171/84 [Right Arm] 10/02/16 10/02/16 10/02/16 11:40 12:00 12:02 Temperature 97.6 F 98 F Pulse Rate 100 H Pulse Rate [ 96 H 96 H Left From Monitor] Respiratory 20 20 Rate Blood Pressure 141/81 Blood Pressure 167/87 141/84 [Right Arm] 10/02/16 10/02/16 10/02/16 13:32 14:02 14:32 Temperature Pulse Rate 96 H 97 H 96 H Pulse Rate [ Left From Monitor] Respiratory Rate Blood Pressure 118/62 119/61 132/78 Blood Pressure [Right Arm] - Exam Cardiovascular: Regular rate, Normal S1, Normal S2 Lungs: Clear to auscultation, Normal air movement Abdomen: Present: normal appearance, soft, normal bowel sounds Vulva: both: normal Uterus: Present: normal, firm FHR: auscultation normal - Labs Labs: Abnormal Labs 10/01/16 10/01/16 10/01/16 09:31 10:58 10:58 RBC 3.46 L Hgb 7.5 L Hct 25.1 L MCV 73 L MCH 22 L RDW 20.0 H Seg Neutrophils % 72.0 H BUN 6 L Uric Acid 8.9 H ALT 6 L Lactate Dehydrogenase 185 H Albumin 3.2 L Urine WBC (Auto) Ur Total Protein 24 Hr 390.00 H Urine Total Protein 13 H 10/01/16 11:11 RBC Hgb Hct MCV MCH RDW Seg Neutrophils % BUN Uric Acid ALT Lactate Dehydrogenase Albumin Urine WBC (Auto) 13.0 H Ur Total Protein 24 Hr Urine Total Protein Laboratory Results - last 24 hr 10/01/16 09:31 Urine Total Volume 3000 Ur Total Protein 24 Hr 390.00 H Urine Total Protein 13 H
[2016-10-02] MEDS: AMBIEN PO PRN (22:44)
[2016-10-03] MEDS: LACTATED RINGERS 1,000 ML IV SCH ×3 (03:35→20:53)
[2016-10-03] MEDS: NORMODYNE PO SCH ×3 (04:03→20:09)
[2016-10-03] MEDS: APRESOLINE PO SCH ×3 (05:00→17:08)
[2016-10-03] MEDS: APRESOLINE IV PRN ×6 (06:12→20:22)
[2016-10-03] MEDS: PRENATAL VITAMIN PO SCH (11:22)
[2016-10-03] MEDS ORDERED: CERVIDIL VG ONE (12:44)
--- NOTE | 2016-10-03 12:54 | Progress Note ---
Assessment and Plan IUP at 33.4 with severe chronic hypertension. Patient's blood pressures are very difficult to control. In addition, patient is now spilling some protein and had an elevation in uric acid. With limited agents available to control blood pressure during , benefits of staying do not appear to outweigh risks. Patient received steroids on last admission. Will place cervidil today and plan for . Subjective - Subjective Date of service: 10/03/16 Interval history: Patient continued to have elevate severely blood pressures overnight with difficult control in spite of multiple doses of medication. Patient reports: movement normal Objective - Vital Signs Vital Signs: Vital Signs - 12hr 10/03/16 10/03/16 10/03/16 03:35 03:46 03:48 Temperature 97.8 F Pulse Rate 98 H 99 H Pulse Rate [ 96 H Left From Monitor] Respiratory 18 Rate Blood Pressure 178/86 Blood Pressure 178/86 [Right Arm] O2 Sat by Pulse 97 Oximetry 10/03/16 10/03/16 10/03/16 03:51 03:56 04:01 Temperature Pulse Rate 99 H 98 H 103 H Pulse Rate [ Left From Monitor] Respiratory Rate Blood Pressure Blood Pressure [Right Arm] O2 Sat by Pulse 97 98 99 Oximetry 10/03/16 10/03/16 10/03/16 04:06 04:08 04:11 Temperature Pulse Rate 97 H 97 H 99 H Pulse Rate [ Left From Monitor] Respiratory Rate Blood Pressure 175/93 Blood Pressure [Right Arm] O2 Sat by Pulse 98 99 Oximetry 10/03/16 10/03/16 10/03/16 04:16 04:21 04:26 Temperature Pulse Rate 99 H 101 H 100 H Pulse Rate [ Left From Monitor] Respiratory Rate Blood Pressure Blood Pressure [Right Arm] O2 Sat by Pulse 100 99 99 Oximetry 10/03/16 10/03/16 10/03/16 04:31 04:36 04:38 Temperature Pulse Rate 99 H 98 H 98 H Pulse Rate [ Left From Monitor] Respiratory Rate Blood Pressure 184/95 Blood Pressure [Right Arm] O2 Sat by Pulse 99 100 93 Oximetry 10/03/16 10/03/16 10/03/16 04:41 05:32 05:36 Temperature Pulse Rate 97 H 91 H 92 H Pulse Rate [ Left From Monitor] Respiratory Rate Blood Pressure 166/88 170/96 Blood Pressure [Right Arm] O2 Sat by Pulse 97 Oximetry 10/03/16 10/03/16 10/03/16 06:07 06:20 07:07 Temperature Pulse Rate 88 90 94 H Pulse Rate [ Left From Monitor] Respiratory Rate Blood Pressure 170/79 154/70 163/90 Blood Pressure [Right Arm] O2 Sat by Pulse Oximetry 10/03/16 10/03/16 10/03/16 07:27 07:28 07:33 Temperature 98 F Pulse Rate 96 H 95 H 96 H Pulse Rate [ 95 H Left From Monitor] Respiratory 20 Rate Blood Pressure 159/101 Blood Pressure 159/101 [Right Arm] O2 Sat by Pulse 98 99 Oximetry 10/03/16 10/03/16 10/03/16 07:36 07:38 07:43 Temperature Pulse Rate 95 H 95 H 94 H Pulse Rate [ Left From Monitor] Respiratory Rate Blood Pressure 172/97 Blood Pressure [Right Arm] O2 Sat by Pulse 98 98 Oximetry 10/03/16 10/03/16 10/03/16 08:02 08:06 08:37 Temperature Pulse Rate 95 H 94 H 100 H Pulse Rate [ Left From Monitor] Respiratory Rate Blood Pressure 179/97 169/91 141/75 Blood Pressure [Right Arm] O2 Sat by Pulse Oximetry 10/03/16 10/03/16 10/03/16 09:06 09:36 10:06 Temperature Pulse Rate 102 H 105 H 105 H Pulse Rate [ Left From Monitor] Respiratory Rate Blood Pressure 136/72 138/68 126/73 Blood Pressure [Right Arm] O2 Sat by Pulse Oximetry 10/03/16 10/03/16 10/03/16 10:56 11:20 11:23 Temperature Pulse Rate 111 H 111 H 111 H Pulse Rate [ Left From Monitor] Respiratory Rate Blood Pressure 175/91 175/91 175/91 Blood Pressure [Right Arm] O2 Sat by Pulse Oximetry 10/03/16 10/03/16 10/03/16 11:24 11:55 12:25 Temperature Pulse Rate 101 H 102 H 98 H Pulse Rate [ Left From Monitor] Respiratory Rate Blood Pressure 158/80 178/97 162/83 Blood Pressure [Right Arm] O2 Sat by Pulse Oximetry - Exam Cardiovascular: Normal S1, Normal S2, Other (mild tachycardia) Lungs: Clear to auscultation, Normal air movement Abdomen: Present: normal appearance, soft, normal bowel sounds Vulva: both: normal Uterus: Present: normal, firm FHR: auscultation normal Cervical Dilatation: 1 Cervical Effacement Percentage: 30 station: -2 Uterine Contraction Pattern: Irregular Uterine Contraction Intensity: Moderate Extremities: normal Deep Tendon Reflex Grade: Normal but brisk +3 - Labs Labs: Abnormal Labs 10/01/16 10/01/16 10/01/16 09:31 10:58 10:58 RBC 3.46 L Hgb 7.5 L Hct 25.1 L MCV 73 L MCH 22 L RDW 20.0 H Seg Neutrophils % 72.0 H BUN 6 L Uric Acid 8.9 H ALT 6 L Lactate Dehydrogenase 185 H Albumin 3.2 L Urine WBC (Auto) Ur Total Protein 24 Hr 390.00 H Urine Total Protein 13 H 10/01/16 11:11 RBC Hgb Hct MCV MCH RDW Seg Neutrophils % BUN Uric Acid ALT Lactate Dehydrogenase Albumin Urine WBC (Auto) 13.0 H Ur Total Protein 24 Hr Urine Total Protein Laboratory Results - last 24 hr 10/01/16 09:31 Urine Total Volume 3000 Ur Total Protein 24 Hr 390.00 H Urine Total Protein 13 H
--- NOTE | 2016-10-03 16:07 | Progress Note ---
Assessment and Plan 40-year-old female is seen for uncontrolled hypertension. #1 uncontrolled hypertension Patient is doing well today. Blood pressure is not well controlled and this is being addressed with induction of labor in the near future. Echocardiogram done today shows normal left ventricular systolic function and mild left ventricular hypertrophy. We'll continue following. No significant cardiac symptoms. Cardiac examination is stable today. - Patient Problems (1) Advanced maternal age (AMA), 40 years or greater Current Visit: No Status: Acute Subjective Date of service: 10/03/16 Interval history: Hypertension is still a problem. This is not well-controlled in spite of multiple doses of IV hydralazine and being on a larger dose of labetalol. Apparently induction of labor is being planned. Objective Vital Signs Temp Pulse Pulse Resp BP BP Pulse Ox 10/03/16 15:55 92 H 188/105 10/03/16 15:39 90 184/96 10/03/16 14:34 95 H 146/74 10/03/16 14:32 91 H 171/95 10/03/16 14:29 94 H 175/93 10/03/16 14:27 88 194/97 10/03/16 14:24 89 182/96 10/03/16 14:19 89 182/96 10/03/16 12:25 98 H 162/83 10/03/16 11:55 102 H 178/97 10/03/16 11:24 101 H 158/80 10/03/16 11:23 111 H 175/91 10/03/16 11:20 111 H 175/91 10/03/16 10:56 111 H 175/91 10/03/16 10:06 105 H 126/73 10/03/16 09:36 105 H 138/68 10/03/16 09:06 102 H 136/72 10/03/16 08:37 100 H 141/75 10/03/16 08:06 94 H 169/91 10/03/16 08:02 95 H 179/97 10/03/16 07:43 94 H 98 10/03/16 07:38 95 H 98 10/03/16 07:36 95 H 172/97 10/03/16 07:33 96 H 99 10/03/16 07:28 98 F 95 H 95 H 20 159/101 98 10/03/16 07:27 96 H 159/101 10/03/16 07:07 94 H 163/90 10/03/16 06:20 90 154/70 10/03/16 06:07 88 170/79 10/03/16 05:36 92 H 170/96 10/03/16 05:32 91 H 166/88 10/03/16 04:41 97 H 97 10/03/16 04:38 98 H 184/95 93 10/03/16 04:36 98 H 100 10/03/16 04:31 99 H 99 10/03/16 04:26 100 H 99 10/03/16 04:21 101 H 99 10/03/16 04:16 99 H 100 10/03/16 04:11 99 H 99 10/03/16 04:08 97 H 175/93 10/03/16 04:06 97 H 98 10/03/16 04:01 103 H 99 10/03/16 03:56 98 H 98 10/03/16 03:51 99 H 97 10/03/16 03:48 97.8 F 96 H 18 178/86 10/03/16 03:46 99 H 97 10/03/16 03:35 98 H 178/86 10/02/16 23:32 96 H 134/74 10/02/16 23:09 99 H 186/99 10/02/16 23:01 95 H 98 10/02/16 22:56 94 H 97 10/02/16 22:51 94 H 97 10/02/16 22:46 98 H 98 10/02/16 22:42 99 H 186/99 10/02/16 22:41 99 H 98 10/02/16 22:36 108 H 97 10/02/16 22:32 97 H 194/111 10/02/16 22:31 96 H 99 10/02/16 22:16 98 H 172/87 10/02/16 22:02 98 H 172/87 10/02/16 21:35 93 H 164/77 10/02/16 21:31 91 H 175/85 10/02/16 21:02 91 H 175/85 10/02/16 20:32 90 162/79 10/02/16 20:04 95 H 167/77 10/02/16 19:32 93 H 143/82 10/02/16 19:02 93 H 117/61 10/02/16 19:00 97.3 F L 93 H 20 117/61 10/02/16 18:32 93 H 131/77 10/02/16 18:02 93 H 125/67 10/02/16 17:32 90 139/80 10/02/16 17:18 96 H 177/94 10/02/16 17:02 96 H 177/94 10/02/16 16:33 91 H 177/97 10/02/16 16:32 93 H 166/100 10/02/16 16:23 91 H 177/97 - Physical Examination HEENT: Positive: PERRL Neck: Positive: neck supple Cardiac: Positive: Reg Rate and Rhythm Lungs: Positive: clear to auscultation Neuro: Positive: Grossly Intact Abdomen: Positive: Other ( uterus) Skin: Positive: Clear Extremities: Present: normal
[2016-10-03] MEDS ORDERED: SUBLIMAZE IV PRN (22:34)
[2016-10-04] MEDS: STADOL IV PRN ×4 (01:39→10:50)
[2016-10-04] MEDS: APRESOLINE IV PRN ×4 (01:43→10:46)
[2016-10-04] MEDS: NORMODYNE PO SCH ×4 (01:48→18:09)
[2016-10-04] MEDS: LACTATED RINGERS 1,000 ML IV SCH ×3 (04:47→21:50)
[2016-10-04] MEDS: APRESOLINE PO SCH ×3 (08:24→13:03)
[2016-10-04] MEDS: PRENATAL VITAMIN PO SCH (08:26)
--- NOTE | 2016-10-04 08:36 | Event Note ---
Date: 10/04/[address] Allyssa Foster. Patient had uncontrolled BP issues and IOL started last night with cervidil. Cervidil removed and noted to be 2/50/-1 station. Arom clear fluid. Will begin pitocin for continuation of IOL. Epidural offered at 4cm . Expect vaginal delivery.
[2016-10-04] MEDS ORDERED: PITOCin/NS 20 UNIT/1000ML DRIP 20 UNITS/1,000 ML BAG IV SCH (09:00)
[2016-10-04] MEDS ORDERED: PITOCin/NS 30 UNIT/500ML 30 UNITS/500 ML BAG IV SCH (09:00)
[2016-10-04] MEDS ORDERED: NORMODYNE IV ONE ×2 (11:30→12:47)
--- NOTE | 2016-10-04 11:46 | Ultrasound Report ---
ULTRASOUND BIOPHYSICAL PROFILE: History: well being, hypertension Technique: Transabdominal ultrasound with Doppler interrogation. 2 - breathing movements 2 - movements 2 - posture and tone 2 - Qualitative amniotic fluid volume 8 - TOTAL SCORE OF POSSIBLE 8 Heart Rate (bpm) 131
[2016-10-04] MEDS ORDERED: NARCAN 2 MG/2 ML ONE (12:00)
[2016-10-04] MEDS ORDERED: XYLOCAINE 2% INFILTRATI ONE ×2 (12:13→12:16)
--- NOTE | 2016-10-04 12:30 | Procedure Note ---
OB Delivery Note - Delivery Date of Delivery: 10/04/16 Surgeon: NELL ARMENDARIZ Estimated blood loss: 300cc - Vaginal Delivery position: OA Intrapartum events: labor-<37 weeks, gestational hypertension, precipitous labor- <3hr Delivery induction: oxytocin Delivery monitor: external FHT, external uterine Route of delivery: Delivery placenta: spontaneous Delivery cord: 3 umbilical vessels Episiotomy: none Delivery laceration: 1st degree Delivery repair: vicryl Anesthesia: none Delivery comments: Patient was noted to have pressure and the family member ran out stating that the baby is in bed. Patient delivered a viable female 1155. I was called and it was discussed by Nurse Qureshi ( Director of women center) and stated that she precipitously delivered in bed. NICU team available at delivery. I walked in room at 1200 and noted cord clamped and placenta 1205 weight 3 pounds and 8 oz 1579 g. Apgars 2 and 7 . a small labial tear repaired with 2-0 vicryl. survery showed non bleeding perneal lac not repored and labial tear on the right not bleeding. Excellent hemostatis noted - Infant A at 1 minute: 2 at 5 minutes: 7 Gender: Female (precipitous labor)
[2016-10-04] MEDS ORDERED: TUCKS PAD TP PRN (12:31)
[2016-10-04] MEDS ORDERED: ZOFRAN IV PRN (12:31)
[2016-10-04] MEDS ORDERED: TORADOL IV PRN (12:31)
[2016-10-04] MEDS ORDERED: NORCO 5/325 PO PRN (12:31)
[2016-10-04] MEDS ORDERED: PHENERGAN PO PRN (12:31)
[2016-10-04] MEDS ORDERED: PERCOCET 5/325 PO PRN (12:31)
[2016-10-04] MEDS ORDERED: MILK OF MAGNESIA PO PRN (12:31)
[2016-10-04] MEDS ORDERED: LANSINOH TP PRN (12:31)
[2016-10-04] MEDS ORDERED: BENADRYL PO PRN (12:31)
[2016-10-04] MEDS ORDERED: DULCOLAX PR PRN (12:31)
[2016-10-04] MEDS ORDERED: PHENERGAN PR PRN (12:31)
[2016-10-04] MEDS ORDERED: TYLENOL PO PRN (12:31)
[2016-10-04] MEDS ORDERED: SODIUM CHLORIDE FLUSH SYRINGE 10 ML IV NR (13:00)
[2016-10-04] MEDS: MOTRIN PO SCH ×2 (13:00→19:02)
--- NOTE | 2016-10-04 14:43 | Consultation ---
History of Present Illness - Reason for Consult Consult date: 10/04/16 Requesting physician: NELL ARMENDARIZ - History of Present Illness 40 YO Female with HTN, Obesity, Consult placed for Accelerated hypertension. Pt denies fever, chills, CP, Palpitations, NVD, recent ill contacts, syncope, Headaches. Pt seen and evaluated in OB suite. Past History Past Medical History: hypertension Past Surgical History: No surgical history Social history: . denies: smoking, alcohol abuse Family history: hypertension Medications and Allergies Allergies Allergy/AdvReac Type Severity Reaction Status Date / Time lactose Allergy Intermediate Diarrhea Verified 10/02/16 09:03 Home Medications Medication Instructions Recorded Confirmed Last Taken Type Aspirin [Aspirin BABY CHEW TAB] 81 mg PO QDAY 09/24/16 10/02/16 09/24/16 History Ferrous Sulfate [Feosol] 325 mg PO QDAY 09/24/16 10/02/16 09/24/16 History Labetalol [Normodyne] 300 mg PO QID 09/24/16 10/02/16 09/24/16 19:30 History hydrALAZINE [Apresoline] 50 mg PO BID 09/24/16 10/02/16 09/23/16 History Active Meds: Active Medications Acetaminophen (Tylenol) 650 mg PO Q4H PRN PRN Reason: Pain MILD(1-3)/Fever >100.5/RAM Last Admin: 10/02/16 11:24 Dose: 650 mg Acetaminophen (Tylenol) 650 mg PO Q4H PRN PRN Reason: Pain MILD(1-3)/Fever >100.5/RAM Acetaminophen/Hydrocodone Bitart ([place] 5/325) 2 each PO Q6H PRN PRN Reason: Pain, Moderate (4-6) Al Hydrox/Mg Hydrox/Simethicone (Alum-Mag Hydrox-Simeth [id number]/5ml) 30 ml PO Q6H PRN PRN Reason: Indigestion Bisacodyl (Dulcolax) 10 mg [place] BID PRN PRN Reason: Constipation Butorphanol Tartrate (Stadol) 2 mg IV Q2H PRN PRN Reason: Labor Pain Last Admin: 10/04/16 10:50 Dose: 2 mg Diphenhydramine HCl (Benadryl) 25 mg PO Q6H PRN PRN Reason: Itching Diphtheria/Tetanus/Acell Pertussis (Boostrix) 0.5 ml IM .ONCE ONE Stop: 10/05/16 06:01 Docusate Sodium (Colace) 100 mg PO Q12H PRN PRN Reason: Constipation Fentanyl (Sublimaze) 100 mcg IV PRN PRN PRN Reason: Pain Last Admin: 10/03/16 22:48 Dose: 100 mcg Guaifenesin (Robitussin) 200 mg PO Q4H PRN PRN Reason: Cough Last Admin: 10/01/16 17:31 Dose: 200 mg Hydralazine HCl (Apresoline) 10 mg IV Q30MIN PRN PRN Reason: Blood Pressure Last Admin: 10/04/16 10:46 Dose: 10 mg Hydralazine HCl (Apresoline) 50 mg PO Q6HR DION[facility] Last Admin: 10/04/16 13:03 Dose: 50 mg Lactated Ringer's (Lactated Ringers) 1,000 mls @ 125 mls/hr IV DIRECT DIONI Last Admin: 10/04/16 11:53 Dose: 125 mls/hr Oxytocin/Sodium Chloride (Pitocin/Ns 20 Unit/1000ml Drip) 20 units in 1,000 mls @ 0 mls/hr IV DIRECT DION[facility] PRN Reason: As Directed Last Admin: 10/04/16 12:45 Dose: 125 mls/hr Oxytocin/Sodium Chloride (Pitocin/Ns 30 Unit/500ml) 30 units in 500 mls @ 0 mls /hr IV TITR DIONI; As Directed PRN Reason: Protocol Last Titration: 10/04/16 10:40 Dose: 8 ml/hr, 8 mls/hr Ibuprofen (Motrin) 600 mg PO Q6H [facility] Ketorolac Tromethamine (Toradol) 30 mg IV Q6H PRN PRN Reason: Pain, Moderate (4-6) Stop: 10/09/16 12:30 Labetalol HCl (Normodyne) 400 mg PO Q6H [facility] Last Admin: 10/04/16 11:40 Dose: 400 mg Magnesium Hydroxide (Milk Of Magnesia) 30 ml PO QHS PRN PRN Reason: Laxative Effect Magnesium Hydroxide (Milk Of Magnesia) 30 ml PO HS PRN PRN Reason: Constipation Measles/Mumps/Rubella Vaccine Live (M-M-R Ii Vaccine) 0.5 ml SUB-Q .ONCE ONE Stop: 10/05/16 06:01 Multi-Ingredient Ointment (Lansinoh) 1 applic TP PRN PRN PRN Reason: Sore Nipples Multivitamins/Iron/Calcium ( Vitamin) 1 each PO QDAY [facility] Last Admin: 10/04/16 08:26 Dose: 1 each Ondansetron HCl (Zofran) 4 mg IV Q6H PRN PRN Reason: Nausea And Vomiting Ondansetron HCl (Zofran) 4 mg IV Q8H PRN PRN Reason: Nausea And Vomiting Oxycodone/Acetaminophen (Percocet 5/325) 1 tab PO Q6H PRN PRN Reason: Pain, Moderate (4-6) Promethazine HCl (Phenergan) 25 mg [place] Q6H PRN PRN Reason: Nausea And Vomiting Promethazine HCl (Phenergan) 25 mg PO Q6H PRN PRN Reason: Nausea And Vomiting Senna/Docusate Sodium (Senokot S) 2 tab PO Q12H PRN PRN Reason: Laxative Effect Simethicone (Mylicon) 80 mg PO Q6H PRN PRN Reason: Gas pain Sodium Chloride (Sodium Chloride Flush Syringe 10 Ml) 10 ml IV PRN NR Stop: 10/05/16 12:59 Witch Camila/Glycerin (Tucks Pad) 1 each TP PRN PRN PRN Reason: Hemorrhoid/cleansing/soothing Zolpidem Tartrate (Ambien) 10 mg PO ONCE PRN PRN Reason: Sleep Last Admin: 10/02/16 22:44 Dose: 10 mg Review of Systems Constitutional: other (high blood pressure) Exam - Constitutional Vitals: Temp Pulse Resp BP Pulse Ox 97.2 F L 86 18 192/111 97 10/04/16 12:03 10/04/16 14:33 10/04/16 12:03 10/04/16 14:33 10/04/16 12:17 General appearance: Present: no acute distress, well-nourished - EENT Eyes: Present: PERRL ENT: hearing intact, clear oral mucosa - Neck Neck: Present: supple, normal ROM - Respiratory Respiratory effort: normal Respiratory: bilateral: CTA - Cardiovascular Heart Sounds: Present: S1 & S2. Absent: rub, click - Extremities Extremities: pulses symmetrical, No edema Peripheral Pulses: within normal limits - Abdominal General gastrointestinal: Present: soft, non-tender, non-distended, normal bowel sounds Female genitourinary: Present: normal - Integumentary Integumentary: Present: clear, warm, dry - Musculoskeletal Musculoskeletal: gait normal, strength equal bilaterally - Psychiatric Psychiatric: appropriate mood/affect, intact judgment & insight - Neurologic Neurologic: CNII-XII intact, moves all extremities Results - Labs CBC & Chem 7: 10/05/16 00:52 10/01/16 10:58 Assessment and Plan - Patient Problems (1) Accelerated hypertension Current Visit: Yes Status: Acute Plan to address problem: Monitor BP q shift, continue B linus, hydralazine as scheduled, continue to monitor BP after discontinuation of oxytocin. Systolic BP goal overnight between 145-160. Hydralazine prn. (2) Obesity Current Visit: No Status: Chronic Qualifiers: Obesity type: unspecified obesity type Obesity severity: unspecified obesity severity Qualified Code(s): E66.9 - Obesity, unspecified Plan to address problem: Pt counseled regarding increased physical acitivity, balanced diet (3) DVT prophylaxis Current Visit: Yes Status: Acute Plan to address problem: as per primary team
[2016-10-04] MEDS ORDERED: APRESOLINE IV PRN (15:30)
[2016-10-04] MEDS ORDERED: MAGNESIUM SULFATE 4GM/100ML 4 GM/100 ML BAG IV ONE (15:56)
[2016-10-04] MEDS ORDERED: MAGNESIUM SULFATE 40GM/1000ML 40 GM/1,000 ML BAG IV SCH (16:00)
--- NOTE | 2016-10-04 17:31 | Event Note ---
Date: 10/04/16 After delivery patient still had elevated BP in 180-/90s asym initate mag for 24 hrs discussed with ApA Dr. York and recommneded PIH work up appreciate hospitists recommnedations labetolol increased to 500 QID Hydralazine 50 mg qid continue to follow closely
[2016-10-04] MEDS ORDERED: NORMODYNE PO SCH (18:00)
[2016-10-04] MEDS ORDERED: APRESOLINE PO SCH ×3 (18:00→22:00)
--- NOTE | 2016-10-04 19:32 | Consultation ---
History of Present Illness Consult date: 10/04/16 Requesting physician: NELL ARMENDARIZ Reason for consult: gestational hypertension History of present illness: Indication for Admission: day # 0 status post delivery for superimposed preeclampsia. Chronic hypertension Poorly controlled hypertension day # 0 CURRENT PRESENTATION: Thank you for your recent consultation regarding the above named patient. As you are aware, this is a 40 year old para 3104 status post delivery at 33 weeks 4 days due to severe superimposed preeclampsia. Patient has noted to have continued elevated blood pressure since earlier today. Presently she is receiving Labetalol at 400 mg q 6 hours and Hydralazine at 50 mg q 6 hours and PRN medications. PAST OBSTETRICAL HISTORY: See notes in patients chart. 1991 1993 1998 Vaginal at term. No AP complications. B Wt 5'11-- 7'0" 2004 Vag delivery at 33 wks Inducation severe PreEclampsia BEW 4'11" PREVIOUS MEDICAL HISTORY: was significant with Morbid obesity. CHTN times 10 yrs PHYSICAL EXAMINATION FINDINGS: General: The patient is a, well-developed, female in no apparent distress Vital Signs: Recent BPs: 178/95, 149/75 Recent BP: WNL Abdomen: Soft, Appropriately-tender, nondistended, , no rebound MOST RECENT LABORATORY TEST RESULTS See reports in chart. Past History Past Medical History: hypertension Past Surgical History: no surgical history [employer] History: gonorrhea, syphilis Family/Genetic History: hypertension, cancer (lung) - Obstetrical History : 5 Medications and Allergies Allergies Allergy/AdvReac Type Severity Reaction Status Date / Time lactose Allergy Intermediate Diarrhea Verified 10/02/16 09:03 Home Medications Medication Instructions Recorded Confirmed Last Taken Type Aspirin [Aspirin BABY CHEW TAB] 81 mg PO QDAY 09/24/16 10/02/16 09/24/16 History Ferrous Sulfate [Feosol] 325 mg PO QDAY 09/24/16 10/02/16 09/24/16 History Labetalol [Normodyne] 300 mg PO QID 09/24/16 10/02/16 09/24/16 19:30 History hydrALAZINE [Apresoline] 50 mg PO BID 09/24/16 10/02/16 09/23/16 History Active Meds: Active Medications Acetaminophen (Tylenol) 650 mg PO Q4H PRN PRN Reason: Pain MILD(1-3)/Fever >100.5/RAM Last Admin: 10/02/16 11:24 Dose: 650 mg Acetaminophen (Tylenol) 650 mg PO Q4H PRN PRN Reason: Pain MILD(1-3)/Fever >100.5/RMA Acetaminophen/Hydrocodone Bitart ([place] 5/325) 2 each PO Q6H PRN PRN Reason: Pain, Moderate (4-6) Al Hydrox/Mg Hydrox/Simethicone (Alum-Mag Hydrox-Simeth [id number]/5ml) 30 ml PO Q6H PRN PRN Reason: Indigestion Bisacodyl (Dulcolax) 10 mg [place] BID PRN PRN Reason: Constipation Butorphanol Tartrate (Stadol) 2 mg IV Q2H PRN PRN Reason: Labor Pain Last Admin: 10/04/16 10:50 Dose: 2 mg Diphenhydramine HCl (Benadryl) 25 mg PO Q6H PRN PRN Reason: Itching Diphtheria/Tetanus/Acell Pertussis (Boostrix) 0.5 ml IM .ONCE ONE Stop: 10/05/16 06:01 Docusate Sodium (Colace) 100 mg PO Q12H PRN PRN Reason: Constipation Fentanyl (Sublimaze) 100 mcg IV PRN PRN PRN Reason: Pain Last Admin: 10/03/16 22:48 Dose: 100 mcg Guaifenesin (Robitussin) 200 mg PO Q4H PRN PRN Reason: Cough Last Admin: 10/01/16 17:31 Dose: 200 mg Hydralazine HCl (Apresoline) 20 mg IV Q4H PRN PRN Reason: Hypertension Hydralazine HCl (Apresoline) 50 mg PO QID DIONI Last Admin: 10/04/16 19:03 Dose: 50 mg Lactated Ringer's (Lactated Ringers) 1,000 mls @ 125 mls/hr IV DIRECT DIONI Last Admin: 10/04/16 11:53 Dose: 125 mls/hr Oxytocin/Sodium Chloride (Pitocin/Ns 20 Unit/1000ml Drip) 20 units in 1,000 mls @ 0 mls/hr IV DIRECT DIONI PRN Reason: As Directed Last Admin: 10/04/16 12:45 Dose: 125 mls/hr Oxytocin/Sodium Chloride (Pitocin/Ns 30 Unit/500ml) 30 units in 500 mls @ 0 mls /hr IV TITR DIONI; As Directed PRN Reason: Protocol Last Titration: 10/04/16 10:40 Dose: 8 ml/hr, 8 mls/hr Magnesium Sulfate (Magnesium Sulfate 40gm/1000ml) 40 gm in 1,000 mls @ 50 mls/ hr IV DIRECT DIONI PRN Reason: 2 GM/HR Last Admin: 10/04/16 19:18 Dose: 2 gm/hr, 50 mls/hr Ibuprofen (Motrin) 600 mg PO Q6H [facility] Last Admin: 10/04/16 19:02 Dose: 600 mg Ketorolac Tromethamine (Toradol) 30 mg IV Q6H PRN PRN Reason: Pain, Moderate (4-6) Stop: 10/09/16 12:30 Labetalol HCl (Normodyne) 500 mg PO QID [facility] Last Admin: 10/04/16 18:09 Dose: 500 mg Magnesium Hydroxide (Milk Of Magnesia) 30 ml PO QHS PRN PRN Reason: Laxative Effect Magnesium Hydroxide (Milk Of Magnesia) 30 ml PO HS PRN PRN Reason: Constipation Measles/Mumps/Rubella Vaccine Live (M-M-R Ii Vaccine) 0.5 ml SUB-Q .ONCE ONE Stop: 10/05/16 06:01 Methyldopa (Aldomet) 250 mg PO Q8HR [facility] Multi-Ingredient Ointment (Lansinoh) 1 applic TP PRN PRN PRN Reason: Sore Nipples Multivitamins/Iron/Calcium ( Vitamin) 1 each PO QDAY [facility] Last Admin: 10/04/16 08:26 Dose: 1 each Ondansetron HCl (Zofran) 4 mg IV Q6H PRN PRN Reason: Nausea And Vomiting Ondansetron HCl (Zofran) 4 mg IV Q8H PRN PRN Reason: Nausea And Vomiting Oxycodone/Acetaminophen (Percocet 5/325) 1 tab PO Q6H PRN PRN Reason: Pain, Moderate (4-6) Promethazine HCl (Phenergan) 25 mg [place] Q6H PRN PRN Reason: Nausea And Vomiting Promethazine HCl (Phenergan) 25 mg PO Q6H PRN PRN Reason: Nausea And Vomiting Senna/Docusate Sodium (Senokot S) 2 tab PO Q12H PRN PRN Reason: Laxative Effect Simethicone (Mylicon) 80 mg PO Q6H PRN PRN Reason: Gas pain Sodium Chloride (Sodium Chloride Flush Syringe 10 Ml) 10 ml IV PRN NR Stop: 10/05/16 12:59 Witch Camila/Glycerin (Tucks Pad) 1 each TP PRN PRN PRN Reason: Hemorrhoid/cleansing/soothing Zolpidem Tartrate (Ambien) 10 mg PO ONCE PRN PRN Reason: Sleep Last Admin: 10/02/16 22:44 Dose: 10 mg - Vital Signs Vital signs: Vital Signs Pulse Pulse Ox 78 88 10/01/16 07:19 10/01/16 07:19 Temp Pulse Resp BP Pulse Ox 97.0 F L 86 18 149/78 97 10/04/16 19:18 10/04/16 19:25 10/04/16 19:18 10/04/16 19:18 10/04/16 19:25 Results Result Diagrams: 10/01/16 10:58 10/01/16 10:58 All other labs normal. Assessment and Plan ASSESSMENT 40 year old patient at post- day # 1 following a delivery complicated by severe preeclampsia. RECOMMENDATIONS AND CONSULTATION: During my consultation with the patient, I reviewed the implications of the previously outlined serological abnormalities. HELLP is generally self limited. We are in agreement with the current framework for assessment and management of the patients current condition (particularly if symptoms persist or worsen). 1. Consider a short term of additional antihypertensive medication (if necessary) in order to maintain systolic blood pressures at less than 160 and diastolic blood pressures at less than 105. 2. Improved BP on current medications. 3. I would recommend hydralazine 5 mg IV or PO q hour PRN diastolic BP > 100 4. This patient appears currently does NOT have HELLP syndrome. 5. ICP and AFLP seem highly unlikely in the absence of additional lab findings or symptoms such as neurological symptoms or palmar pruritis. 6. I would repeat this patients Platelet count and LFTs in approximately 48 hours and then in one week to determine if there is an improvement in the trend. Thank you for allowing us to participate in the care of this patient. We look forward to the opportunity to assist in her continued management. If you have any questions, We may be reached at [phone]. Shasha Mcclendon M.D.
--- NOTE | 2016-10-04 21:02 | Progress Note ---
Assessment and Plan BP under control.To continue current dosage of antihypertensives. Will see her on as needed basis. - Patient Problems (1) Advanced maternal age (AMA), 40 years or greater Current Visit: No Status: Acute (2) Chronic hypertension affecting Current Visit: No Status: Chronic (3) Obesity Current Visit: No Status: Chronic Qualifiers: Obesity type: unspecified obesity type Obesity severity: unspecified obesity severity Qualified Code(s): E66.9 - Obesity, unspecified Subjective Date of service: 10/04/16 Interval history: Resting in bed. No CP or SOB. BP much improved. (141/79 mm Hg). Objective Vital Signs Temp Pulse Pulse Pulse Resp BP BP 10/04/16 20:50 82 10/04/16 20:48 82 141/79 10/04/16 20:45 82 10/04/16 20:40 83 10/04/16 20:35 83 10/04/16 20:33 83 128/75 10/04/16 20:30 83 10/04/16 20:25 82 10/04/16 20:20 81 10/04/16 20:18 80 132/76 10/04/16 20:15 83 10/04/16 20:10 83 10/04/16 20:05 86 10/04/16 20:03 83 140/78 10/04/16 20:00 85 10/04/16 19:55 80 10/04/16 19:50 85 10/04/16 19:48 83 135/75 10/04/16 19:45 82 10/04/16 19:40 85 10/04/16 19:35 97.0 F L 83 82 18 126/67 10/04/16 19:33 86 126/67 10/04/16 19:30 85 10/04/16 19:25 86 10/04/16 19:20 87 10/04/16 19:18 97.0 F L 85 89 18 132/71 149/78 10/04/16 19:15 86 10/04/16 19:10 89 10/04/16 19:05 94 H 10/04/16 19:03 94 H 178/95 10/04/16 19:00 95 H 10/04/16 18:55 90 10/04/16 18:51 97.1 F L 92 H 18 178/95 10/04/16 18:50 92 H 10/04/16 18:48 92 H 178/95 10/04/16 18:45 93 H 191/102 10/04/16 18:12 97.6 F 92 H 91 H 18 191/99 10/04/16 18:09 191/99 10/04/16 18:03 85 191/99 10/04/16 17:48 88 194/112 10/04/16 17:34 81 193/106 10/04/16 17:33 83 10/04/16 17:28 85 10/04/16 17:23 83 10/04/16 17:18 88 173/95 10/04/16 17:13 81 10/04/16 17:08 81 10/04/16 17:03 89 176/96 10/04/16 16:58 81 10/04/16 16:53 83 10/04/16 16:48 85 169/91 10/04/16 16:43 86 10/04/16 16:38 78 10/04/16 16:33 85 165/88 10/04/16 16:28 82 10/04/16 16:23 88 10/04/16 16:18 86 153/79 10/04/16 16:03 90 171/92 10/04/16 15:48 88 161/83 10/04/16 15:33 89 156/83 10/04/16 15:18 88 168/98 10/04/16 15:03 85 175/90 10/04/16 14:51 88 168/99 10/04/16 14:48 85 188/108 10/04/16 14:33 86 192/111 10/04/16 14:18 85 190/107 10/04/16 14:03 85 186/101 10/04/16 13:48 81 193/112 10/04/16 13:34 83 191/108 10/04/16 13:31 83 179/97 10/04/16 13:29 85 173/97 10/04/16 13:04 85 152/84 10/04/16 13:03 118 H 175/90 10/04/16 12:49 86 175/90 10/04/16 12:36 88 181/91 10/04/16 12:34 88 165/88 10/04/16 12:19 88 145/78 10/04/16 12:17 92 H 10/04/16 12:11 87 175/84 10/04/16 12:03 97.2 F L 91 H 18 175/84 10/04/16 11:57 90 208/103 10/04/16 11:40 93 H 156/83 10/04/16 11:39 83 156/83 10/04/16 11:35 97.6 F 83 20 156/83 10/04/16 11:27 93 H 194/99 10/04/16 11:20 97.6 F 18 183/96 10/04/16 11:10 85 177/91 10/04/16 10:55 92 H 183/96 10/04/16 10:50 20 10/04/16 10:46 90 188/97 10/04/16 10:40 90 188/97 10/04/16 10:25 92 H 195/97 10/04/16 10:11 93 H 188/101 10/04/16 09:55 89 195/108 10/04/16 09:41 89 195/108 10/04/16 09:09 88 183/102 10/04/16 08:39 87 184/99 10/04/16 08:24 90 164/94 10/04/16 08:10 90 164/94 10/04/16 07:39 89 171/86 10/04/16 07:09 91 H 162/87 10/04/16 06:39 93 H 163/84 10/04/16 06:29 98.4 F 18 190/79 10/04/16 06:09 89 152/80 10/04/16 05:42 90 179/89 10/04/16 05:41 90 179/89 10/04/16 05:09 97 H 171/90 10/04/16 04:42 98 F 96 H 18 183/98 183/93 10/04/16 04:39 96 H 183/99 10/04/16 04:35 100 H 195/99 10/04/16 04:10 100 H 195/99 10/04/16 03:40 105 H 199/105 10/04/16 03:10 104 H 196/96 10/04/16 03:00 98.0 F 18 196/90 10/04/16 02:39 105 H 190/98 10/04/16 02:09 102 H 189/97 10/04/16 01:49 100 H 187/94 10/04/16 01:48 97 H 195/89 10/04/16 01:43 97 H 195/98 10/04/16 01:39 97 H 195/98 10/04/16 01:09 93 H 179/91 10/04/16 00:39 97 H 192/97 10/04/16 00:09 97.6 F 95 H 18 172/86 172/86 10/03/16 23:39 100 H 145/83 10/03/16 23:10 96 H 159/86 10/03/16 22:49 99 H 159/83 10/03/16 22:09 105 H 161/81 10/03/16 22:00 98.4 F 105 H 18 161/81 10/03/16 21:40 108 H 149/87 10/03/16 21:09 102 H 177/98 Pulse Ox 10/04/16 20:50 97 10/04/16 20:48 10/04/16 20:45 96 10/04/16 20:40 97 10/04/16 20:35 97 10/04/16 20:33 10/04/16 20:30 98 10/04/16 20:25 95 10/04/16 20:20 96 10/04/16 20:18 10/04/16 20:15 97 10/04/16 20:10 96 10/04/16 20:05 97 10/04/16 20:03 10/04/16 20:00 95 10/04/16 19:55 97 10/04/16 19:50 96 10/04/16 19:48 93 10/04/16 19:45 96 10/04/16 19:40 96 10/04/16 19:35 97 10/04/16 19:33 10/04/16 19:30 96 10/04/16 19:25 97 10/04/16 19:20 97 10/04/16 19:18 10/04/16 19:15 96 10/04/16 19:10 96 10/04/16 19:05 96 10/04/16 19:03 10/04/16 19:00 97 10/04/16 18:55 99 10/04/16 18:51 10/04/16 18:50 98 10/04/16 18:48 10/04/16 18:45 99 10/04/16 18:12 99 10/04/16 18:09 10/04/16 18:03 10/04/16 17:48 10/04/16 17:34 10/04/16 17:33 97 10/04/16 17:28 97 10/04/16 17:23 98 10/04/16 17:18 97 10/04/16 17:13 97 10/04/16 17:08 97 10/04/16 17:03 97 10/04/16 16:58 97 10/04/16 16:53 96 10/04/16 16:48 96 10/04/16 16:43 96 10/04/16 16:38 96 10/04/16 16:33 96 10/04/16 16:28 97 10/04/16 16:23 98 10/04/16 16:18 98 10/04/16 16:03 10/04/16 15:48 10/04/16 15:33 10/04/16 15:18 10/04/16 15:03 10/04/16 14:51 10/04/16 14:48 10/04/16 14:33 10/04/16 14:18 10/04/16 14:03 10/04/16 13:48 10/04/16 13:34 10/04/16 13:31 10/04/16 13:29 10/04/16 13:04 10/04/16 13:03 10/04/16 12:49 10/04/16 12:36 10/04/16 12:34 10/04/16 12:19 10/04/16 12:17 97 10/04/16 12:11 10/04/16 12:03 97 10/04/16 11:57 10/04/16 11:40 10/04/16 11:39 10/04/16 11:35 10/04/16 11:27 10/04/16 11:20 10/04/16 11:10 10/04/16 10:55 10/04/16 10:50 10/04/16 10:46 10/04/16 10:40 10/04/16 10:25 10/04/16 10:11 10/04/16 09:55 10/04/16 09:41 10/04/16 09:09 10/04/16 08:39 10/04/16 08:24 10/04/16 08:10 10/04/16 07:39 10/04/16 07:09 10/04/16 06:39 10/04/16 06:29 10/04/16 06:09 10/04/16 05:42 10/04/16 05:41 10/04/16 05:09 10/04/16 04:42 10/04/16 04:39 10/04/16 04:35 10/04/16 04:10 10/04/16 03:40 10/04/16 03:10 10/04/16 03:00 10/04/16 02:39 10/04/16 02:09 10/04/16 01:49 10/04/16 01:48 10/04/16 01:43 10/04/16 01:39 10/04/16 01:09 10/04/16 00:39 10/04/16 00:09 10/03/16 23:39 10/03/16 23:10 10/03/16 22:49 10/03/16 22:09 10/03/16 22:00 10/03/16 21:40 10/03/16 21:09 - Physical Examination General: No Apparent Distress HEENT: Positive: PERRL, Normocephaly, Mucus Membranes Moist Neck: Positive: neck supple. Negative: JVD/HJR Cardiac: Positive: Regular Rate, Other (loud S2) Lungs: Positive: clear to auscultation, Normal Breath Sounds. Negative: No Wheeze, Rales, Rhonchi Neuro: Positive: Grossly Intact Abdomen: Positive: Soft, Other ( uterus) Skin: Positive: Clear Musculoskeletal: No Fluid Collection, No Pain, Normal Range of Motion Extremities: Present: normal, upper extr. pulses, lower extr. pulses - Imaging and Cardiology Echo: report reviewed
[2016-10-05 01:07] LABS: Hematocrit 22.3 % (30.3-42.9); Hemoglobin 6.8 gm/dl (10.1-14.3)
[2016-10-05] MEDS: MOTRIN PO SCH ×4 (01:36→23:13)
[2016-10-05] MEDS: AMBIEN PO PRN (01:36)
[2016-10-05] MEDS ORDERED: M-M-R II VACCINE SUB-Q ONE (06:00)
[2016-10-05] MEDS ORDERED: BOOSTRIX IM ONE (06:00)
[2016-10-05] MEDS: ALDOMET PO SCH ×3 (06:27→22:11)
--- NOTE | 2016-10-05 07:47 | Progress Note ---
Assessment and Plan O: VSS AF PP H/H: 6.8/22.3 BP: 130-140-150/70-80 Magnesium Sulfate: Continues at 2gm/hr [place]: 600cc currently in bag Magnesium Level: noted WNL A: Stable PP Day 1 S/P induction and delivery of 33 week infant for preeclampsia P: continue current plan D/C Magnesium 24hr post delivery Com[place] with Iron TID Subjective - Subjective Date of service: 10/05/16 Patient reports: appetite normal, voiding normally ([place] present and patent. ) , pain well controlled, other (Denies headache, blurred vision or epigastric pain) : doing well, in NICU Objective - Vital Signs Latest vital signs: Vital Signs Temp Pulse Pulse Resp BP BP Pulse Ox 10/05/16 06:27 78 158/82 10/05/16 04:00 98.6 F 69 16 152/84 10/05/16 00:00 98.6 F 74 16 142/72 10/04/16 22:40 98.6 F 62 16 152/72 10/04/16 21:52 77 146/75 10/04/16 21:49 83 152/78 10/04/16 21:40 83 98 10/04/16 21:38 82 94 10/04/16 21:35 80 97 10/04/16 21:33 97.1 F L 81 85 18 133/71 133/71 10/04/16 21:31 80 94 10/04/16 21:30 80 95 10/04/16 21:25 85 98 10/04/16 21:20 82 96 10/04/16 21:18 81 138/76 10/04/16 21:15 85 97 10/04/16 21:10 82 97 10/04/16 21:05 82 97 10/04/16 21:03 83 139/79 10/04/16 21:00 82 96 10/04/16 20:55 81 97 10/04/16 20:50 82 97 10/04/16 20:48 82 141/79 10/04/16 20:45 82 96 10/04/16 20:40 83 97 10/04/16 20:35 83 97 10/04/16 20:33 83 128/75 10/04/16 20:30 83 98 10/04/16 20:25 82 95 10/04/16 20:20 81 96 10/04/16 20:18 80 132/76 10/04/16 20:15 83 97 10/04/16 20:10 83 96 10/04/16 20:05 86 97 10/04/16 20:03 83 140/78 10/04/16 20:00 85 95 10/04/16 19:55 80 97 10/04/16 19:50 85 96 10/04/16 19:48 83 135/75 93 10/04/16 19:45 82 96 10/04/16 19:40 85 96 10/04/16 19:35 97.0 F L 83 82 18 126/67 97 10/04/16 19:33 86 126/67 10/04/16 19:30 85 96 10/04/16 19:25 86 97 10/04/16 19:20 87 97 10/04/16 19:18 97.0 F L 85 89 18 132/71 149/78 10/04/16 19:15 86 96 10/04/16 19:10 89 96 10/04/16 19:05 94 H 96 10/04/16 19:03 94 H 178/95 10/04/16 19:00 95 H 97 10/04/16 18:55 90 99 10/04/16 18:51 97.1 F L 92 H 18 178/95 10/04/16 18:50 92 H 98 10/04/16 18:48 92 H 178/95 10/04/16 18:45 93 H 191/102 99 10/04/16 18:12 97.6 F 92 H 91 H 18 191/99 99 10/04/16 18:09 191/99 10/04/16 18:03 85 191/99 10/04/16 17:48 88 194/112 10/04/16 17:34 81 193/106 10/04/16 17:33 83 97 10/04/16 17:28 85 97 10/04/16 17:23 83 98 10/04/16 17:18 88 173/95 97 10/04/16 17:13 81 97 10/04/16 17:08 81 97 10/04/16 17:03 89 176/96 97 10/04/16 16:58 81 97 10/04/16 16:53 83 96 10/04/16 16:48 85 169/91 96 10/04/16 16:43 86 96 10/04/16 16:38 78 96 10/04/16 16:33 85 165/88 96 10/04/16 16:28 82 97 10/04/16 16:23 88 98 10/04/16 16:18 86 153/79 98 10/04/16 16:03 90 171/92 10/04/16 15:48 88 161/83 10/04/16 15:33 89 156/83 10/04/16 15:18 88 168/98 10/04/16 15:03 85 175/90 10/04/16 14:51 88 168/99 10/04/16 14:48 85 188/108 10/04/16 14:33 86 192/111 10/04/16 14:18 85 190/107 10/04/16 14:03 85 186/101 10/04/16 13:48 81 193/112 10/04/16 13:34 83 191/108 10/04/16 13:31 83 179/97 10/04/16 13:29 85 173/97 10/04/16 13:04 85 152/84 10/04/16 13:03 118 H 175/90 10/04/16 12:49 86 175/90 10/04/16 12:36 88 181/91 10/04/16 12:34 88 165/88 10/04/16 12:19 88 145/78 10/04/16 12:17 92 H 97 10/04/16 12:11 87 175/84 10/04/16 12:03 97.2 F L 91 H 18 175/84 97 10/04/16 11:57 90 208/103 10/04/16 11:40 93 H 156/83 10/04/16 11:39 83 156/83 10/04/16 11:35 97.6 F 83 20 156/83 10/04/16 11:27 93 H 194/99 10/04/16 11:20 97.6 F 18 183/96 10/04/16 11:10 85 177/91 10/04/16 10:55 92 H 183/96 10/04/16 10:50 20 10/04/16 10:46 90 188/97 10/04/16 10:40 90 188/97 10/04/16 10:25 92 H 195/97 10/04/16 10:11 93 H 188/101 10/04/16 09:55 89 195/108 10/04/16 09:41 89 195/108 10/04/16 09:09 88 183/102 10/04/16 08:39 87 184/99 10/04/16 08:24 90 164/94 10/04/16 08:10 90 164/94 Intake and Output 10/04/16 10/05/16 10/05/16 22:59 06:59 14:59 Intake Total 1325 600 Output Total 400 2000 Balance 925 -1400 Intake: IV 1325 300 Lactated Ringers 1,000 ml 1000 @ 125 mls/hr IV DIRECT DIONI Rx#:[id number] MAGNESIUM SULFATE 40GM/ 250 300 1000ML 40 gm In 1,000 ml @ 2 GM/HR 50 mls/hr IV DIRECT DIONI Rx#:[id number] PITOCin/NS 20 UNIT/1000ML 75 DRIP 20 units In 1,000 ml @ As Directed IV DIRECT DIONI Rx#:[id number] Intake, Free Water 300 Output: Urine 400 2000 Indwelling Catheter 2000 Void 400 Other: Total, Output Amount 400 800 - Exam Breasts: Present: deferred Abdomen: Present: normal appearance, soft. Absent: distention, tenderness Vulva: both: normal Uterus: Present: normal, firm, fundal height below umbilicus. Absent: bogginess , tenderness Extremities: Present: normal, other (SCD's present). Absent: edema - Labs Labs: Abnormal lab results 10/05/16 10/05/16 Range/Units 00:52 00:52 Hgb 6.8 L (10.1-14.3) gm/dl Hct 22.3 L (30.3-42.9) % Magnesium 4.10 H (1.7-2.3) mg/dL
[2016-10-05] MEDS: NORMODYNE PO SCH ×3 (10:11→22:11)
[2016-10-05] MEDS: COLACE PO SCH ×2 (10:18→23:13)
[2016-10-05] MEDS: PRENATAL VITAMIN PO SCH (10:18)
[2016-10-05] MEDS: APRESOLINE PO SCH ×3 (10:30→20:41)
[2016-10-05] MEDS: LACTATED RINGERS 1,000 ML IV SCH (11:32)
[2016-10-05] MEDS: FEOSOL PO SCH ×3 (12:56→20:41)
--- NOTE | 2016-10-05 17:36 | Progress Note ---
Assessment and Plan - Patient Problems (1) Anemia affecting Current Visit: Yes Status: Acute Qualifiers: Trimester: T Plan to address problem: Anemia after . Patient hemoglobin 6.8. Consider transfusion. (2) Accelerated hypertension Current Visit: Yes Status: Acute Plan to address problem: Accelerated hypertension fair but suboptimal control will increase hydralazine to 3 times a day. Keep labetalol as indicated. Would titrate accordingly. (3) Advanced maternal age (AMA), 40 years or greater Current Visit: No Status: Acute (4) Chronic hypertension affecting Current Visit: No Status: Chronic Plan to address problem: Hypertension affecting continue hydralazine increased to 100 mg 3 times a day and labetalol. (5) Obesity Current Visit: No Status: Chronic Qualifiers: Obesity type: unspecified obesity type Obesity severity: unspecified obesity severity Qualified Code(s): E66.9 - Obesity, unspecified Plan to address problem: Exercise diet limited carbohydrates. History Interval history: Pt S/P echocardiogram today. Feels better. No nausea vomiting limited headache. Increase energy. Blood pressure remains fair but suboptimal control. Hospitalist Physical - Constitutional Vitals: Temp Pulse Resp BP Pulse Ox 97.8 F 88 18 162/98 98 10/05/16 12:33 10/05/16 14:44 10/05/16 12:33 10/05/16 14:44 10/04/16 21:40 General appearance: Present: no acute distress, well-nourished - EENT Eyes: Present: PERRL, EOM intact ENT: hearing intact, clear oral mucosa, dentition normal, oropharyngeal erythema , poor dentition, no thrush - Neck Neck: Present: supple, normal ROM. Absent: rigidity, enlarged thyroid, masses or JVD - Respiratory Respiratory: bilateral: CTA - Cardiovascular Rhythm: regular - Extremities Extremities: no ischemia, pulses intact, No edema, normal temperature Extremity abnormal: edema Peripheral Pulses: within normal limits - Abdominal General gastrointestinal: soft, non-tender, non-distended, normal bowel sounds - Integumentary Integumentary: Present: clear, warm, dry - Psychiatric Psychiatric: appropriate mood/affect, intact judgment & insight, cooperative - Neurologic Neurologic: CNII-XII intact, moves all extremities Results - Labs CBC & Chem 7: 10/05/16 00:52 10/01/16 10:58 Labs: Laboratory Last Values WBC 7.2 K/mm3 (4.5-11.0) 10/01/16 10:58 RBC 3.46 M/mm3 (3.65-5.03) L 10/01/16 10:58 Hgb 6.8 gm/dl (10.1-14.3) L 10/05/16 00:52 Hct 22.3 % (30.3-42.9) L 10/05/16 00:52 MCV 73 fl (79-97) L 10/01/16 10:58 MCH 22 pg (28-32) L 10/01/16 10:58 MCHC 30 % (30-34) 10/01/16 10:58 RDW 20.0 % (13.2-15.2) H 10/01/16 10:58 Plt Count 293 K/mm3 (140-440) 10/01/16 10:58 Lymph % (Auto) 19.8 % (13.4-35.0) 10/01/16 10:58 [place] % (Auto) 6.6 % (0.0-7.3) 10/01/16 10:58 Eos % (Auto) 1.3 % (0.0-4.3) 10/01/16 10:58 Baso % (Auto) 0.3 % (0.0-1.8) 10/01/16 10:58 Lymph # 1.4 K/mm3 (1.2-5.4) 10/01/16 10:58 [place] # 0.5 K/mm3 (0.0-0.8) 10/01/16 10:58 Eos # 0.1 K/mm3 (0.0-0.4) 10/01/16 10:58 Baso # 0.0 K/mm3 (0.0-0.1) 10/01/16 10:58 Seg Neutrophils % 72.0 % (40.0-70.0) H 10/01/16 10:58 Seg Neutrophils # 5.2 K/mm3 (1.8-7.7) 10/01/16 10:58 Sodium 141 mmol/L (137-145) 10/01/16 10:58 Potassium 3.6 mmol/L (3.6-5.0) 10/01/16 10:58 Chloride 104.1 mmol/L (98-107) 10/01/16 10:58 Carbon Dioxide 22 mmol/L (22-30) 10/01/16 10:58 Anion Gap 19 mmol/L 10/01/16 10:58 BUN 6 mg/dL (7-17) L 10/01/16 10:58 Creatinine 0.7 mg/dL (0.7-1.2) 10/01/16 10:58 Estimated GFR > 60 ml/min 10/01/16 10:58 BUN/Creatinine Ratio 8.57 % 10/01/16 10:58 Glucose 94 mg/dL (65-100) 10/01/16 10:58 Uric Acid 8.9 mg/dL (3.5-7.6) H 10/01/16 10:58 Calcium 8.9 mg/dL (8.4-10.2) 10/01/16 10:58 Magnesium 5.10 mg/dL (1.7-2.3) H 10/05/16 08:32 Total Bilirubin 0.50 mg/dL (0.1-1.2) 10/01/16 10:58 AST 11 units/L (5-40) 10/01/16 10:58 ALT 6 units/L (7-56) L 10/01/16 10:58 Alkaline Phosphatase 85 units/L (35-129) 10/01/16 10:58 Lactate Dehydrogenase 185 units/L (91-180) H 10/01/16 10:58 Total Protein 6.8 g/dL (6.3-8.2) 10/01/16 10:58 Albumin 3.2 g/dL (3.9-5) L 10/01/16 10:58 Albumin/Globulin Ratio 0.9 % 10/01/16 10:58 Urine Color Straw (Yellow) 10/01/16 11:11 Urine Turbidity Clear (Clear) 10/01/16 11:11 Urine pH 7.0 (5.0-7.0) 10/01/16 11:11 Ur Specific [place] 1.004 (1.003-1.030) 10/01/16 11:11 Urine Protein <15 mg/dl mg/dL (Negative) 10/01/16 11:11 Urine Glucose (UA) Neg mg/dL (Negative) 10/01/16 11:11 Urine Ketones Neg mg/dL (Negative) 10/01/16 11:11 Urine Blood Mod (Negative) 10/01/16 11:11 Urine Nitrite Neg (Negative) 10/01/16 11:11 Urine Bilirubin Neg (Negative) 10/01/16 11:11 Urine Urobilinogen < 2.0 mg/dL (<2.0) 10/01/16 11:11 Ur Leukocyte Esterase Lg (Negative) 10/01/16 11:11 Urine WBC (Auto) 13.0 /HPF (0.0-6.0) H 10/01/16 11:11 Urine RBC (Auto) 3.0 /HPF (0.0-6.0) 10/01/16 11:11 U Epithel Cells (Auto) 1.0 /HPF (0-13.0) 10/01/16 11:11 Urine Bacteria (Auto) 2+ /HPF (Negative) 10/01/16 11:11 Urine Mucus Few /HPF 10/01/16 11:11 Urine Total Volume 3000 10/01/16 09:31 Ur Total Protein 24 Hr 390.00 (2-200) H 10/01/16 09:31 Urine Total Protein 13 mg/dL (5-11.8) H 10/01/16 09:31 Blood Type O POSITIVE 10/01/16 10:58 Antibody Screen TNR 10/01/16 10:58 SUGEY Antibody Screen Negative 10/01/16 10:58
[2016-10-05] MEDS ORDERED: NACL 0.9% 500 ML 500 ML IV NR (19:34)
[2016-10-05] MEDS ORDERED: TYLENOL PO PRN (19:37)
[2016-10-05] MEDS ORDERED: BENADRYL PO PRN (19:38)
[2016-10-06] MEDS: MOTRIN PO SCH ×3 (05:18→18:47)
[2016-10-06] MEDS: ALDOMET PO SCH ×2 (05:19→16:51)
[2016-10-06 06:59] LABS: Hematocrit 24.2 % (30.3-42.9); Hemoglobin 7.5 gm/dl (10.1-14.3)
[2016-10-06] MEDS: NORMODYNE PO SCH ×3 (09:37→21:33)
[2016-10-06] MEDS: LASIX PO SCH ×2 (09:38→21:32)
[2016-10-06] MEDS: APRESOLINE PO SCH ×3 (09:38→21:33)
[2016-10-06] MEDS: PRENATAL VITAMIN PO SCH (09:38)
[2016-10-06] MEDS: FEOSOL PO SCH ×3 (09:39→21:32)
--- NOTE | 2016-10-06 12:17 | Progress Note ---
Assessment and Plan Assessment and plan: 40-year-old female who is postoperative day 3 status post section for preeclampsia (1) Anemia affecting Current Visit: Yes Status: Acute Qualifiers: Trimester: T Plan to address problem: Transfusion was ordered by primary team, agree with the plan (2) hypertensive urgency Current Visit: Yes Status: Acute Plan to address problem: continue current meds, add nifedipine XL Echocardiogram does not show any acute abnormalities, shows preserved EF (3) Advanced maternal age (AMA), 40 years or greater Current Visit: No Status: Acute (4) Chronic hypertension affecting Current Visit: No Status: Chronic Plan to address problem: Hypertension affecting continue hydralazine increased to 100 mg 3 times a day and labetalol. (5) Obesity Current Visit: No Status: Chronic Qualifiers: Obesity type: unspecified obesity type Obesity severity: unspecified obesity severity Qualified Code(s): E66.9 - Obesity, unspecified Plan to address problem: Exercise diet limited carbohydrates. 6. Hypokalemia replete IV DVT prophylaxis per primary team History Interval history: Denies chest pain or shortness of breath denies palpitations Hospitalist Physical - Physical exam Narrative exam: General: Patient appears well in no distress HEENT: MMM, EOMI cardiac: S1-S2 heard lungs: clear to auscultation, abdomen: soft, nontender, nondistended bowel sounds positive extremities: no edema clubbing or cyanosis Skin: no rash or lesion Neuro: no focal deficit Psych: appropriate behavior and mood, cognition intact - Constitutional Vitals: Temp Pulse Resp BP Pulse Ox 98.3 F 94 H 20 166/85 98 10/06/16 08:26 10/06/16 09:37 10/06/16 08:26 10/06/16 09:37 10/04/16 21:40 General appearance: Present: no acute distress, well-nourished Results - Labs CBC & Chem 7: 10/08/16 05:42 10/08/16 08:10 Labs: Laboratory Last Values WBC 7.2 K/mm3 (4.5-11.0) 10/01/16 10:58 RBC 3.46 M/mm3 (3.65-5.03) L 10/01/16 10:58 Hgb 7.5 gm/dl (10.1-14.3) L 10/06/16 06:44 Hct 24.2 % (30.3-42.9) L 10/06/16 06:44 MCV 73 fl (79-97) L 10/01/16 10:58 MCH 22 pg (28-32) L 10/01/16 10:58 MCHC 30 % (30-34) 10/01/16 10:58 RDW 20.0 % (13.2-15.2) H 10/01/16 10:58 Plt Count 293 K/mm3 (140-440) 10/01/16 10:58 Lymph % (Auto) 19.8 % (13.4-35.0) 10/01/16 10:58 [place] % (Auto) 6.6 % (0.0-7.3) 10/01/16 10:58 Eos % (Auto) 1.3 % (0.0-4.3) 10/01/16 10:58 Baso % (Auto) 0.3 % (0.0-1.8) 10/01/16 10:58 Lymph # 1.4 K/mm3 (1.2-5.4) 10/01/16 10:58 [place] # 0.5 K/mm3 (0.0-0.8) 10/01/16 10:58 Eos # 0.1 K/mm3 (0.0-0.4) 10/01/16 10:58 Baso # 0.0 K/mm3 (0.0-0.1) 10/01/16 10:58 Seg Neutrophils % 72.0 % (40.0-70.0) H 10/01/16 10:58 Seg Neutrophils # 5.2 K/mm3 (1.8-7.7) 10/01/16 10:58 Sodium 141 mmol/L (137-145) 10/01/16 10:58 Potassium 3.6 mmol/L (3.6-5.0) 10/01/16 10:58 Chloride 104.1 mmol/L (98-107) 10/01/16 10:58 Carbon Dioxide 22 mmol/L (22-30) 10/01/16 10:58 Anion Gap 19 mmol/L 10/01/16 10:58 BUN 6 mg/dL (7-17) L 10/01/16 10:58 Creatinine 0.7 mg/dL (0.7-1.2) 10/01/16 10:58 Estimated GFR > 60 ml/min 10/01/16 10:58 BUN/Creatinine Ratio 8.57 % 10/01/16 10:58 Glucose 94 mg/dL (65-100) 10/01/16 10:58 Uric Acid 8.9 mg/dL (3.5-7.6) H 10/01/16 10:58 Calcium 8.9 mg/dL (8.4-10.2) 10/01/16 10:58 Magnesium 5.10 mg/dL (1.7-2.3) H 10/05/16 08:32 Total Bilirubin 0.50 mg/dL (0.1-1.2) 10/01/16 10:58 AST 11 units/L (5-40) 10/01/16 10:58 ALT 6 units/L (7-56) L 10/01/16 10:58 Alkaline Phosphatase 85 units/L (35-129) 10/01/16 10:58 Lactate Dehydrogenase 185 units/L (91-180) H 10/01/16 10:58 Total Protein 6.8 g/dL (6.3-8.2) 10/01/16 10:58 Albumin 3.2 g/dL (3.9-5) L 10/01/16 10:58 Albumin/Globulin Ratio 0.9 % 10/01/16 10:58 Urine Color Straw (Yellow) 10/01/16 11:11 Urine Turbidity Clear (Clear) 10/01/16 11:11 Urine pH 7.0 (5.0-7.0) 10/01/16 11:11 Ur Specific [place] 1.004 (1.003-1.030) 10/01/16 11:11 Urine Protein <15 mg/dl mg/dL (Negative) 10/01/16 11:11 Urine Glucose (UA) Neg mg/dL (Negative) 10/01/16 11:11 Urine Ketones Neg mg/dL (Negative) 10/01/16 11:11 Urine Blood Mod (Negative) 10/01/16 11:11 Urine Nitrite Neg (Negative) 10/01/16 11:11 Urine Bilirubin Neg (Negative) 10/01/16 11:11 Urine Urobilinogen < 2.0 mg/dL (<2.0) 10/01/16 11:11 Ur Leukocyte Esterase Lg (Negative) 10/01/16 11:11 Urine WBC (Auto) 13.0 /HPF (0.0-6.0) H 10/01/16 11:11 Urine RBC (Auto) 3.0 /HPF (0.0-6.0) 10/01/16 11:11 U Epithel Cells (Auto) 1.0 /HPF (0-13.0) 10/01/16 11:11 Urine Bacteria (Auto) 2+ /HPF (Negative) 10/01/16 11:11 Urine Mucus Few /HPF 10/01/16 11:11 Urine Total Volume 3000 10/01/16 09:31 Ur Total Protein 24 Hr 390.00 (2-200) H 10/01/16 09:31 Urine Total Protein 13 mg/dL (5-11.8) H 10/01/16 09:31 Blood Type O POSITIVE 10/05/16 20:07 Antibody Screen TNR 10/05/16 20:07 SUEGY Antibody Screen Negative 10/05/16 20:07 Crossmatch See Detail 10/05/16 20:07
[2016-10-06] MEDS: ROBITUSSIN PO PRN (12:20)
[2016-10-06] MEDS: COLACE PO SCH (21:32)
[2016-10-06] MEDS: AMBIEN PO PRN (21:38)
[2016-10-06] MEDS ORDERED: PROCARDIA XL PO SCH (22:00)
[2016-10-07] MEDS: MOTRIN PO SCH ×2 (00:10→05:55)
[2016-10-07] MEDS: ALDOMET PO SCH ×3 (00:11→16:00)
[2016-10-07] MEDS: APRESOLINE PO SCH ×3 (08:00→20:45)
[2016-10-07] MEDS: FEOSOL PO SCH ×3 (08:00→20:45)
[2016-10-07] MEDS ORDERED: PROCARDIA XL PO SCH (08:53)
[2016-10-07] MEDS: LASIX PO SCH ×2 (09:00→21:35)
[2016-10-07] MEDS ORDERED: ALDOMET ONE (09:15)
[2016-10-07] MEDS: NORMODYNE PO SCH ×4 (10:00→20:56)
[2016-10-07] MEDS: PRENATAL VITAMIN PO SCH (10:00)
[2016-10-07] MEDS: PROCARDIA XL PO SCH ×2 (10:00→21:35)
[2016-10-07] MEDS: COLACE PO SCH ×2 (10:00→21:36)
[2016-10-07 10:14] LABS: Hemoglobin 7.9 gm/dl (10.1-14.3); Mean Corpuscular HGB Conc 32 % (30-34); Mean Corpuscular Volume 75 fl (79-97); Platelet Count 260 K/mm3 (140-440); Red Blood Count 3.34 M/mm3 (3.65-5.03)
[2016-10-07 10:19] LABS: Mean Corpuscular Hemoglobin 24 pg (28-32); Red Cell Distribution Width 21.3 % (13.2-15.2)
[2016-10-07 10:30] LABS: Anion Gap 18 mmol/L; BUN/Creatinine Ratio 6.66; Blood Urea Nitrogen 4 mg/dL (7-17); Calcium 8.5 mg/dL (8.4-10.2); Carbon Dioxide 22 mmol/L (22-30); Chloride 102.8 mmol/L (98-107); Glucose 80 mg/dL (65-100); Potassium 3.2 mmol/L (3.6-5.0); Sodium 140 mmol/L (137-145)
[2016-10-07] MEDS ORDERED: NACL 0.9% 500 ML 500 ML IV SCH (14:00)
--- NOTE | 2016-10-07 14:06 | Progress Note ---
Assessment and Plan A/P PPD3# delivery , uncontrolled HTN, s/p Mag baby in NICU -stable HTN on multiple agents low K+ will give K continue present mgt appreciate medicine tem following along Subjective - Subjective Date of service: 10/07/16 Principal diagnosis: PPD #3 s/p delivery , suboptimal control of HTN Interval history: This is a 40 yo at 32+ weeks was seen in clinic and [facility] and noted to have elevated BP 180/100s. She has a hx of chronic HTN on labetolol and hydralazine and baby asa during this . She was admitted last week for evaluation and treatment of HTN and started on mag. She was discharged and still remained to have elevated BP. OB problem list 1. AMA 2. chronic HTN 3. 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 anemia- on iron tabs 6. Glucose intolerance 7. pericardial effusion labs : O+ antibody neg h/h 8.3/29 rubella IMM RPR reactive urine culture neg Hep neg HIV neg PLt 430 HSV2 + tejinder/chlam neg sickle cell screen neg H/H 7.6/26.2 glucose 154 3hrs 89,119,114,68 plt 361 HIV neg RPR neg Patient reports: appetite normal, voiding normally, pain well controlled, ambulating normally [place]: doing well, in NICU Objective - Vital Signs Latest vital signs: Vital Signs Temp Pulse Pulse Resp BP BP BP 10/07/16 13:45 98.1 F 88 20 147/71 147/71 10/07/16 08:23 99 F 88 20 170/96 170/96 10/07/16 04:20 98.5 F 94 H 18 156/78 155/76 10/07/16 00:12 98.4 F 98 H 24 169/86 169/86 10/07/16 00:11 98 H 169/86 10/06/16 21:50 99 F 98 H 18 169/86 169/86 10/06/16 21:33 98 H 169/86 10/06/16 16:51 96 H 168/92 10/06/16 16:44 97.9 F 96 H 20 168/92 168/92 Intake and Output 10/06/16 10/07/16 10/07/16 22:59 06:59 14:59 Intake Total 600 480 720 Output Total 1100 Balance 600 480 -380 Intake: Oral 360 720 Intake, Free Water 240 480 Output: Urine 1100 Void 1100 Other: Total, Intake Amount 360 480 Total, Output Amount 700 # Voids Void 1 1 2 - Exam Breasts: Present: normal Cardiovascular: Present: Regular rate, Normal S1, Normal S2 Lungs: Present: Clear to auscultation, Normal air movement Abdomen: Present: normal appearance, soft, normal bowel sounds. Absent: distention, tenderness Vulva: both: normal Uterus: Present: normal, firm, fundal height below umbilicus. Absent: tenderness Deep Tendon Reflex Grade: Normal +2 - Labs Labs: Abnormal lab results 10/07/16 10/07/16 Range/Units 09:45 09:45 RBC 3.34 L (3.65-5.03) M/mm3 Hgb 7.9 L (10.1-14.3) gm/dl Hct 25.0 L (30.3-42.9) % MCV 75 L (79-97) fl MCH 24 L (28-32) pg RDW 21.3 H (13.2-15.2) % Potassium 3.2 L (3.6-5.0) mmol/L BUN 4 L (7-17) mg/dL Creatinine 0.6 L (0.7-1.2) mg/dL
--- NOTE | 2016-10-07 14:47 | Progress Note ---
Assessment and Plan Assessment and plan: 40-year-old female who is status post section for preeclampsia Anemia affecting Current Visit: Yes Status: Acute Qualifiers: Trimester: T Plan to address problem: Transfusion was ordered by primary team, agree with the plan, Hg has risen appropriately hypertensive urgency /post htn Current Visit: Yes Status: Acute Plan to address problem: continue current meds, improving Echocardiogram does not show any acute abnormalities, shows preserved EF Advanced maternal age (AMA), 40 years or greater Current Visit: No Status: Acute Obesity Current Visit: No Status: Chronic Qualifiers: Obesity type: unspecified obesity type Obesity severity: unspecified obesity severity Qualified Code(s): E66.9 - Obesity, unspecified Plan to address problem: Exercise diet limited carbohydrates. Hypokalemia repleted IV, check magnesium level DVT prophylaxis per primary team History Interval history: Denies chest pain or shortness of breath denies palpitations Hospitalist Physical - Physical exam Narrative exam: General: Patient appears well in no distress HEENT: MMM, EOMI cardiac: S1-S2 heard lungs: clear to auscultation, abdomen: soft, nontender, nondistended bowel sounds positive extremities: no edema clubbing or cyanosis Skin: no rash or lesion Neuro: no focal deficit Psych: appropriate behavior and mood, cognition intact - Constitutional Vitals: Temp Pulse Resp BP Pulse Ox 98.1 F 88 20 147/71 98 10/07/16 13:45 10/07/16 13:45 10/07/16 13:45 10/07/16 13:45 10/04/16 21:40 General appearance: Present: no acute distress, well-nourished Results - Labs CBC & Chem 7: 10/08/16 05:42 10/08/16 08:10 Labs: Laboratory Last Values WBC 8.0 K/mm3 (4.5-11.0) 10/07/16 09:45 RBC 3.34 M/mm3 (3.65-5.03) L 10/07/16 09:45 Hgb 7.9 gm/dl (10.1-14.3) L 10/07/16 09:45 Hct 25.0 % (30.3-42.9) L 10/07/16 09:45 MCV 75 fl (79-97) L 10/07/16 09:45 MCH 24 pg (28-32) L 10/07/16 09:45 MCHC 32 % (30-34) 10/07/16 09:45 RDW 21.3 % (13.2-15.2) H 10/07/16 09:45 Plt Count 260 K/mm3 (140-440) 10/07/16 09:45 Lymph % (Auto) 19.8 % (13.4-35.0) 10/01/16 10:58 [place] % (Auto) 6.6 % (0.0-7.3) 10/01/16 10:58 Eos % (Auto) 1.3 % (0.0-4.3) 10/01/16 10:58 Baso % (Auto) 0.3 % (0.0-1.8) 10/01/16 10:58 Lymph # 1.4 K/mm3 (1.2-5.4) 10/01/16 10:58 [place] # 0.5 K/mm3 (0.0-0.8) 10/01/16 10:58 Eos # 0.1 K/mm3 (0.0-0.4) 10/01/16 10:58 Baso # 0.0 K/mm3 (0.0-0.1) 10/01/16 10:58 Seg Neutrophils % 72.0 % (40.0-70.0) H 10/01/16 10:58 Seg Neutrophils # 5.2 K/mm3 (1.8-7.7) 10/01/16 10:58 Sodium 140 mmol/L (137-145) 10/07/16 09:45 Potassium 3.2 mmol/L (3.6-5.0) L 10/07/16 09:45 Chloride 102.8 mmol/L (98-107) 10/07/16 09:45 Carbon Dioxide 22 mmol/L (22-30) 10/07/16 09:45 Anion Gap 18 mmol/L 10/07/16 09:45 BUN 4 mg/dL (7-17) L 10/07/16 09:45 Creatinine 0.6 mg/dL (0.7-1.2) L 10/07/16 09:45 Estimated GFR > 60 ml/min 10/07/16 09:45 BUN/Creatinine Ratio 6.66 % 10/07/16 09:45 Glucose 80 mg/dL (65-100) 10/07/16 09:45 Uric Acid 8.9 mg/dL (3.5-7.6) H 10/01/16 10:58 Calcium 8.5 mg/dL (8.4-10.2) 10/07/16 09:45 Magnesium 5.10 mg/dL (1.7-2.3) H 10/05/16 08:32 Total Bilirubin 0.50 mg/dL (0.1-1.2) 10/01/16 10:58 AST 11 units/L (5-40) 10/01/16 10:58 ALT 6 units/L (7-56) L 10/01/16 10:58 Alkaline Phosphatase 85 units/L (35-129) 10/01/16 10:58 Lactate Dehydrogenase 185 units/L (91-180) H 10/01/16 10:58 Total Protein 6.8 g/dL (6.3-8.2) 10/01/16 10:58 Albumin 3.2 g/dL (3.9-5) L 10/01/16 10:58 Albumin/Globulin Ratio 0.9 % 10/01/16 10:58 Urine Color Straw (Yellow) 10/01/16 11:11 Urine Turbidity Clear (Clear) 10/01/16 11:11 Urine pH 7.0 (5.0-7.0) 10/01/16 11:11 Ur Specific [place] 1.004 (1.003-1.030) 10/01/16 11:11 Urine Protein <15 mg/dl mg/dL (Negative) 10/01/16 11:11 Urine Glucose (UA) Neg mg/dL (Negative) 10/01/16 11:11 Urine Ketones Neg mg/dL (Negative) 10/01/16 11:11 Urine Blood Mod (Negative) 10/01/16 11:11 Urine Nitrite Neg (Negative) 10/01/16 11:11 Urine Bilirubin Neg (Negative) 10/01/16 11:11 Urine Urobilinogen < 2.0 mg/dL (<2.0) 10/01/16 11:11 Ur Leukocyte Esterase Lg (Negative) 10/01/16 11:11 Urine WBC (Auto) 13.0 /HPF (0.0-6.0) H 10/01/16 11:11 Urine RBC (Auto) 3.0 /HPF (0.0-6.0) 10/01/16 11:11 U Epithel Cells (Auto) 1.0 /HPF (0-13.0) 10/01/16 11:11 Urine Bacteria (Auto) 2+ /HPF (Negative) 10/01/16 11:11 Urine Mucus Few /HPF 10/01/16 11:11 Urine Total Volume 3000 10/01/16 09:31 Ur Total Protein 24 Hr 390.00 (2-200) H 10/01/16 09:31 Urine Total Protein 13 mg/dL (5-11.8) H 10/01/16 09:31 Blood Type O POSITIVE 10/05/16 20:07 Antibody Screen TNR 10/05/16 20:07 SUGEY Antibody Screen Negative 10/05/16 20:07 Crossmatch See Detail 10/05/16 20:07
[2016-10-07] MEDS ORDERED: ROCEPHIN/NS 1 GM/50 ML 1 GM/50 ML BAG IV SCH (15:00)
[2016-10-07] MEDS ORDERED: NACL 0.9% 500 ML 500 ML IV ONE (15:00)
[2016-10-07] MEDS: KCL 10MEQ/100ML 10 MEQ/100 ML BAG IV SCH ×4 (15:30→19:15)
[2016-10-08] MEDS: ALDOMET PO SCH ×3 (00:03→16:50)
[2016-10-08] MEDS: NORMODYNE PO SCH ×3 (00:05→16:50)
[2016-10-08] MEDS: MOTRIN PO SCH ×2 (00:09→05:39)
[2016-10-08 06:25] LABS: Basophils % (Auto) 0.4 % (0.0-1.8); Eosinophils % (Auto) 2.1 % (0.0-4.3); Hematocrit 27.5 % (30.3-42.9); Hemoglobin 8.4 gm/dl (10.1-14.3); Mean Corpuscular HGB Conc 31 % (30-34); Mean Corpuscular Volume 75 fl (79-97); Platelet Count 278 K/mm3 (140-440); Red Blood Count 3.65 M/mm3 (3.65-5.03); White Blood Count 7.4 K/mm3 (4.5-11.0)
[2016-10-08 06:32] LABS: Mean Corpuscular Hemoglobin 23 pg (28-32); Red Cell Distribution Width 21.7 % (13.2-15.2)
[2016-10-08 06:37] LABS: Anion Gap 20 mmol/L; BUN/Creatinine Ratio 6.25; Blood Urea Nitrogen 5 mg/dL (7-17); Calcium 8.8 mg/dL (8.4-10.2); Carbon Dioxide 23 mmol/L (22-30); Chloride 98.7 mmol/L (98-107); Glucose 85 mg/dL (65-100); Potassium 3.2 mmol/L (3.6-5.0); Sodium 138 mmol/L (137-145)
[2016-10-08] MEDS: APRESOLINE PO SCH ×2 (08:00→16:50)
[2016-10-08] MEDS: FEOSOL PO SCH (08:00)
[2016-10-08] MEDS: LASIX PO SCH (08:00)
[2016-10-08] MEDS: PROCARDIA XL PO SCH (10:00)
[2016-10-08] MEDS ORDERED: NACL 0.9% 500 ML 500 ML ONE (11:29)
[2016-10-08] MEDS ORDERED: K-DUR PO ONE (11:49)
[2016-10-08] MEDS: KCL 10MEQ/100ML 10 MEQ/100 ML BAG IV SCH ×3 (12:07→14:30)
[2016-10-08] MEDS: COLACE PO SCH (12:15)
[2016-10-08] MEDS ORDERED: MAGNESIUM SULFATE 2GM/50ML 2 GM/50 ML BAG IV ONE (17:03)
[2016-10-08] MEDS ORDERED: CARDENE 50 MG in NACL 0.9% 250ML 230 ML IV SCH (18:00)
[2016-10-08 19:14] VITALS: BP 190/104
== END 2016-10-08 18:40 | disposition left against medical advice (07) | DRG 774 ==
LOC: TRG 06:15 → LD 08:15 → TRG 09:31 → LD 09:31 → OB 10-04 22:39
PROVIDERS: ADMIT Obstetrics & Gynecology; ATTEND Obstetrics & Gynecology
PROC: 30233N1 Transfusion of Nonautologous Red Blood Cells into Peripheral Vein, Percutaneous Approach (ICD-10-PCS; 2016-10-01)
PROC: 3E0234Z Introduction of Serum, Toxoid and Vaccine into Muscle, Percutaneous Approach (ICD-10-PCS; 2016-10-01)
PROC: 10E0XZZ Delivery of Products of Conception, External Approach (ICD-10-PCS; principal; 2016-10-04)
PROC: 3E033VJ Introduction of Other Hormone into Peripheral Vein, Percutaneous Approach (ICD-10-PCS; 2016-10-04)
PROC: 10907ZC Drainage of Amniotic Fluid, Therapeutic from Products of Conception, Via Natural or Artificial Opening (ICD-10-PCS; 2016-10-04)
PROC: 0HQ9XZZ Repair Perineum Skin, External Approach (ICD-10-PCS; 2016-10-04)
DX: O60.14X0 Preterm labor third trimester with preterm delivery third trimester, not applicable or unspecified (principal); O98.52 Other viral diseases complicating childbirth; I16.0 Hypertensive urgency; O99.02 Anemia complicating childbirth; O35.8XX0 Maternal care for other (suspected) fetal abnormality and damage, not applicable or unspecified; I31.3 Pericardial effusion (noninflammatory); O99.214 Obesity complicating childbirth; D64.9 Anemia, unspecified; O62.3 Precipitate labor; B00.9 Herpesviral infection, unspecified; E66.9 Obesity, unspecified; O11.4 Pre-existing hypertension with pre-eclampsia, complicating childbirth; Z53.21 Procedure and treatment not carried out due to patient leaving prior to being seen by health care provider; O70.0 First degree perineal laceration during delivery; O99.285 Endocrine, nutritional and metabolic diseases complicating the puerperium; E83.42 Hypomagnesemia; O09.523 Supervision of elderly multigravida, third trimester; Z3A.33 33 weeks gestation of pregnancy; Z37.0 Single live birth; Z68.37 Body mass index [BMI] 37.0-37.9, adult; Z88.8 Allergy status to other drugs, medicaments and biological substances
CPT/HCPCS: 36415; 76819; 80048; 80053; 81001; 83615; 83735; 84132; 84156; 84550; 85014; 85018; 85025; 85027; 86850; 86900; 86901; 86920; 87076; 87086; 87186; 88307; 90471; 90715; 93306; A6250; J0360; J0595; J2310; J2590; J3010; J3475; J3480; J7040; J7120; P9016